=== PATIENT | male | born 1950 | race Caucasian/White ===

== ENCOUNTER 2021-06-11 19:29 | Inpatient (IN) | payer MEDICARE ==
[~2021-06-11 19:29] MED LIST: Adenosine 6 MG/2 ML VIAL ONE; Atropine Sulfate 0.4 mg/1 ml Vial ONE; Bivalirudin 250 MG VIAL ONE; Fentanyl 100 MCG/2 ML VIAL ONE; Heparin 10,000 UNITS/ 10 ML VIAL ONE; Lidocaine 1% PF 5 ML VIAL ONE; Midazolam HCl 2 mg/2 ml Vial ONE; Nitroglycerin 50 MG/250 ML BOT 250 ML ONE; Ondansetron PF 4 MG/2 ML Vial ONE; Sodium Chloride 0.9% 0 ML ONE; Verapamil 5 MG/2 ML VIAL ONE
[2021-06-11] MEDS ORDERED: Diltiazem 125 MG/25 ML ONE (19:40)
[2021-06-11 19:46] LABS: #Basophils 0.1 10x3/uL (0.0-0.2); #Eosinphils 0.1 10x3/uL (0.0-0.5); #Monocytes 0.9 10x3/uL (0.0-1.1); #Neutrophils 7.8 10x3/uL (1.5-8.4); %Basophils 0.5 % (0.0-2.0); %Eosinophils 0.9 % (0.0-6.0); %Lymphocytes 14.8 % (18.0-47.0); %Monocytes 8.9 % (0.0-10.0); %Neutrophils 74.2 % (40.0-75.0); Hemoglobin 9.8 g/dL (13.5-17.5); Mean Corpuscular HGB CONC 32.6 g/dL (32.0-36.0); Mean Corpuscular Hemoglobin 29.5 pg (27.0-33.0); Mean Corpuscular Volume 90.7 fl (81.2-95.1); Mean Platelet Volume 8.7 fl (7.4-10.4); Platelet Count 279 10x3/uL (150-450); RBC Distribution Width 13.1 % (11.5-14.5); Red Blood Cell (RBC) Count 3.32 10x6/uL (4.32-5.72); White Blood Cell (WBC) Count 10.5 10x3/uL (3.5-10.5)
[2021-06-11 20:00] LABS: ALT (SGPT) 21 U/L (8-55); AST (SGOT) 23 U/L (5-34); Albumin 3.6 g/dL (3.4-4.8); Alkaline Phosphatase 75 U/L (40-110); Anion Gap 18 mmol/L (10-20); BUN (Urea Nitrogen) 16 mg/dL (8.4-25.7); Bilirubin, Total 0.6 mg/dL (0.2-1.2); Calc. Creatinine Clearance 0 mL/min (70-130); Calcium 8.6 mg/dL (7.8-10.44); Carbon Dioxide 26 mmol/L (23-31); Chloride 93 mmol/L (98-107); Globulin 3.4 g/dL (2.4-3.5); Glucose 174 mg/dL (83-110); Potassium 3.9 mmol/L (3.5-5.1); Sodium 133 mmol/L (136-145)
[2021-06-11 20:22] LABS: CKMB 3.4 ng/mL (0-6.6)
[2021-06-11] MEDS ORDERED: Ondansetron PF 4 MG/2 ML Vial IVP PRN (20:30)
[2021-06-11] MEDS ORDERED: Zolpidem Tartrate 5 MG TAB PO PRN (20:30)
[2021-06-11] MEDS ORDERED: Calcium Carbonate 500 MG ChewTAB PO PRN (20:30)
[2021-06-11] MEDS ORDERED: Senokot S 8.6-50 MG TAB PO PRN (20:30)
[2021-06-11] MEDS ORDERED: HYDROcodone/Acetaminophen 5/325 mg Tablet PO PRN (20:30)
[2021-06-11] MEDS ORDERED: Guaifenesin DM 100-10/5 ML UDCUP PO PRN (20:30)
[2021-06-11 20:31] LABS: SARS-CoV-2 NAA Rapid Test Not Detected (NotDetected)
[2021-06-11] MEDS ORDERED: Dextrose 50% Abboject 50 ML SYRINGE SLOW IVP PRN (20:35)
[2021-06-11] MEDS ORDERED: Dextrose 5% in Water 1,000 ML IV PRN (20:35)
[2021-06-11] MEDS ORDERED: Nitroglycerin 0.4 MG TAB (25 Tab Bottle) SL PRN (20:39)
[2021-06-11] MEDS ORDERED: Diltiazem 125 MG in Sodium Chloride 0.9% 100 ML IVPB SCH (20:45)
[2021-06-11] MEDS ORDERED: predniSONE 20 MG TAB PO SCH (20:45)
[2021-06-11] MEDS ORDERED: Atorvastatin Calcium 40 MG TAB PO SCH (21:00)
[2021-06-11] MEDS ORDERED: PROPOFOL 200 MG/20 ML VIAL ONE (22:26)
[2021-06-11] MEDS ORDERED: Phenylephrine 10 MG/ML VIAL ONE (22:26)
[2021-06-11 23:51] LABS: CKMB 7.2 ng/mL (0-6.6)
[2021-06-12] MEDS: Metoprolol Tartrate 25 MG TAB PO SCH ×3 (01:02→21:36)
[2021-06-12] MEDS: Ferrous Sulfate 325 MG TAB PO SCH ×3 (01:02→21:36)
[2021-06-12] MEDS ORDERED: Furosemide 40 MG/4 ML VIAL SLOW IVP PRN (01:31)
[2021-06-12 04:26] LABS: #Monocytes 0.2 10x3/uL (0.0-1.1); #Neutrophils 6.3 10x3/uL (1.5-8.4); %Basophils 0.1 % (0.0-2.0); %Eosinophils 0.1 % (0.0-6.0); %Lymphocytes 7.8 % (18.0-47.0); %Monocytes 2.5 % (0.0-10.0); %Neutrophils 88.9 % (40.0-75.0); Hemoglobin 8.8 g/dL (13.5-17.5); Mean Corpuscular HGB CONC 32.6 g/dL (32.0-36.0); Mean Corpuscular Hemoglobin 28.9 pg (27.0-33.0); Mean Corpuscular Volume 88.8 fl (81.2-95.1); Mean Platelet Volume 8.8 fl (7.4-10.4); Platelet Count 244 10x3/uL (150-450); RBC Distribution Width 13.2 % (11.5-14.5); Red Blood Cell (RBC) Count 3.04 10x6/uL (4.32-5.72); White Blood Cell (WBC) Count 7.1 10x3/uL (3.5-10.5)
[2021-06-12 04:38] LABS: Anion Gap 14 mmol/L (10-20); BUN (Urea Nitrogen) 21 mg/dL (8.4-25.7); Calc. Creatinine Clearance 88 mL/min (70-130); Calcium 8.4 mg/dL (7.8-10.44); Carbon Dioxide 26 mmol/L (23-31); Cardiac Risk 2.5 (Less than 4.5); Chloride 97 mmol/L (98-107); Cholesterol 75 mg/dl (< 200 Desired); Glucose 223 mg/dL (83-110); HDL Cholesterol 30 mg/dL (>60 Neg Risk); LDL Cholesterol, Calculated 36 mg/dL; Potassium 4.4 mmol/L (3.5-5.1); Sodium 133 mmol/L (136-145); Triglycerides 43 mg/dL (Less than 150)
[2021-06-12] MEDS: Budesonide 0.5 MG/2 ML NEB NEB SCH ×2 (07:08→22:07)
[2021-06-12] MEDS ORDERED: predniSONE 20 MG TAB PO SCH (08:00)
[2021-06-12] MEDS ORDERED: Furosemide 20 MG/2 ML VIAL SLOW IVP SCH (09:00)
[2021-06-12] MEDS ORDERED: Aspirin 81 mg Enteric Coated Tablet PO SCH (09:00)
[2021-06-12] MEDS ORDERED: Enoxaparin Sodium 100 MG/ML SYRINGE SC SCH (09:00)
[2021-06-12] MEDS: Amiodarone 200 MG TAB PO SCH ×3 (09:54→21:35)
[2021-06-12 12:37] LABS: Hemoglobin A1c 6.1 % (4.0-6.0)
[2021-06-12] MEDS: HumaLOG 300 UNITS/3 ML VIAL SC PRN (13:15)
[2021-06-12] MEDS ORDERED: Furosemide 40 MG/4 ML VIAL SLOW IVP SCH (15:00)
[2021-06-12] MEDS ORDERED: Loratadine 10 MG TAB PO PRN (16:39)
[2021-06-12] MEDS: metFORMIN 500 MG TAB PO SCH (16:56)
[2021-06-12] MEDS: Atorvastatin Calcium 40 MG TAB PO SCH (21:35)
[2021-06-12] MEDS: Gabapentin 400 MG CAP PO SCH (21:35)
[2021-06-12] MEDS: busPIRone HCl 5 MG TAB PO SCH (21:35)
[2021-06-12] MEDS: Apixaban 5 MG TAB PO SCH (21:36)
[2021-06-13 05:44] LABS: #Neutrophils 13.8 10x3/uL (1.5-8.4); %Basophils 0.1 % (0.0-2.0); %Eosinophils 0.1 % (0.0-6.0); %Lymphocytes 6.1 % (18.0-47.0); %Monocytes 6.5 % (0.0-10.0); %Neutrophils 86.3 % (40.0-75.0); Hemoglobin 8.4 g/dL (13.5-17.5); Mean Corpuscular HGB CONC 31.9 g/dL (32.0-36.0); Mean Corpuscular Hemoglobin 28.4 pg (27.0-33.0); Mean Corpuscular Volume 88.9 fl (81.2-95.1); Mean Platelet Volume 8.9 fl (7.4-10.4); Platelet Count 278 10x3/uL (150-450); RBC Distribution Width 13.1 % (11.5-14.5); Red Blood Cell (RBC) Count 2.96 10x6/uL (4.32-5.72)
[2021-06-13 05:50] LABS: Anion Gap 12 mmol/L (10-20); BUN (Urea Nitrogen) 26 mg/dL (8.4-25.7); Calc. Creatinine Clearance 96 mL/min (70-130); Calcium 8.4 mg/dL (7.8-10.44); Carbon Dioxide 30 mmol/L (23-31); Chloride 95 mmol/L (98-107); Glucose 118 mg/dL (83-110); Potassium 4.1 mmol/L (3.5-5.1); Sodium 133 mmol/L (136-145)
[2021-06-13] MEDS: Budesonide 0.5 MG/2 ML NEB NEB SCH ×2 (07:56→21:58)
[2021-06-13] MEDS ORDERED: Furosemide 20 MG TAB PO SCH (09:00)
[2021-06-13] MEDS ORDERED: FLU VACC QS2021-22(65YR UP)/PF 240 MCG/0.7 ML SYRINGE IM ONE (09:00)
[2021-06-13] MEDS: Clopidogrel Bisulfate 75 MG TAB PO SCH (09:21)
[2021-06-13] MEDS: Apixaban 5 MG TAB PO SCH (09:21)
[2021-06-13] MEDS: Losartan 25 MG TAB PO SCH (09:21)
[2021-06-13] MEDS: Citalopram 20 MG TAB PO SCH (09:23)
[2021-06-13] MEDS: Metoprolol Tartrate 25 MG TAB PO SCH ×2 (09:24→22:19)
[2021-06-13] MEDS: metFORMIN 500 MG TAB PO SCH ×2 (09:24→16:09)
[2021-06-13] MEDS: busPIRone HCl 5 MG TAB PO SCH ×2 (09:24→21:18)
[2021-06-13] MEDS: Gabapentin 400 MG CAP PO SCH ×2 (09:25→21:18)
[2021-06-13] MEDS: Ferrous Sulfate 325 MG TAB PO SCH ×2 (09:25→21:19)
[2021-06-13] MEDS: Amiodarone 200 MG TAB PO SCH ×3 (09:25→21:19)
[2021-06-13] MEDS: Aspirin 81 mg Enteric Coated Tablet PO SCH (09:25)
[2021-06-13 11:01] LABS: CKMB 6.6 ng/mL (0-6.6)
[2021-06-13] MEDS: HumaLOG 300 UNITS/3 ML VIAL SC PRN (12:59)
[2021-06-13] MEDS ORDERED: Nicotine 14 MG PATCH TD SCH (16:30)
[2021-06-13] MEDS: Acetaminophen 325 MG TAB PO PRN (18:25)
[2021-06-13] MEDS: Atorvastatin Calcium 40 MG TAB PO SCH (21:19)
[2021-06-14 02:57] LABS: Bilirubin Neg (Negative); Blood, Urine Negative (Negative); Clarity Clear (Clear); Glucose, Urine (Dipstick) Normal (Negative); Ketone, Urine Negative (Negative); Leukocyte Negative (Negative); Nitrite Negative (Negative); Protein, Urine (Dipstick) Negative (Neg-Trace); Urobilinogen Normal mg/dL (Less than 2)
[2021-06-14 02:59] LABS: Urine Culture Reflex No No
[2021-06-14 03:05] LABS: Bacteria/HPF Rare-Few HPF (None Seen); RBC/HPF 0-3 HPF (0-3); Squamous Epithelial 0-3 HPF (0-3); WBC/HPF 0-3 HPF (0-3)
[2021-06-14 05:18] LABS: #Eosinphils 0.1 10x3/uL (0.0-0.5); #Monocytes 0.8 10x3/uL (0.0-1.1); #Neutrophils 6.4 10x3/uL (1.5-8.4); %Basophils 0.5 % (0.0-2.0); %Eosinophils 0.7 % (0.0-6.0); %Lymphocytes 13.1 % (18.0-47.0); %Monocytes 9.4 % (0.0-10.0); %Neutrophils 75.7 % (40.0-75.0); Hemoglobin 7.8 g/dL (13.5-17.5); Mean Corpuscular HGB CONC 31.6 g/dL (32.0-36.0); Mean Corpuscular Hemoglobin 28.7 pg (27.0-33.0); Mean Corpuscular Volume 90.8 fl (81.2-95.1); Mean Platelet Volume 8.8 fl (7.4-10.4); Platelet Count 249 10x3/uL (150-450); RBC Distribution Width 13.3 % (11.5-14.5); Red Blood Cell (RBC) Count 2.72 10x6/uL (4.32-5.72); White Blood Cell (WBC) Count 8.5 10x3/uL (3.5-10.5)
[2021-06-14 06:08] LABS: CKMB 4.8 ng/mL (0-6.6)
[2021-06-14] MEDS: Budesonide 0.5 MG/2 ML NEB NEB SCH ×2 (07:10→20:45)
[2021-06-14] MEDS ORDERED: Sodium Chloride 0.9% 500 ML IV SCH (08:00)
[2021-06-14] MEDS: metFORMIN 500 MG TAB PO SCH ×2 (08:36→18:38)
[2021-06-14] MEDS: Gabapentin 400 MG CAP PO SCH ×2 (08:36→22:00)
[2021-06-14] MEDS: Citalopram 20 MG TAB PO SCH (08:38)
[2021-06-14] MEDS: Amiodarone 200 MG TAB PO SCH ×3 (08:39→21:59)
[2021-06-14] MEDS: Aspirin 81 mg Enteric Coated Tablet PO SCH (08:39)
[2021-06-14] MEDS: Metoprolol Tartrate 25 MG TAB PO SCH ×2 (08:41→22:01)
[2021-06-14] MEDS: Ferrous Sulfate 325 MG TAB PO SCH ×2 (08:42→22:01)
[2021-06-14] MEDS: busPIRone HCl 5 MG TAB PO SCH ×2 (08:42→21:59)
[2021-06-14] MEDS ORDERED: Digoxin 0.5 MG/2 ML AMP SLOW IVP SCH ×2 (09:00→14:00)
[2021-06-14] MEDS: Clopidogrel Bisulfate 75 MG TAB PO SCH (13:20)
[2021-06-14] MEDS: Pantoprazole 40 MG VIAL IVP SCH ×2 (13:21→20:45)
[2021-06-14] MEDS: Nicotine 14 MG PATCH TD SCH (13:21)
[2021-06-14 19:38] LABS: #Eosinphils 0.1 10x3/uL (0.0-0.5); #Monocytes 0.9 10x3/uL (0.0-1.1); #Neutrophils 7.2 10x3/uL (1.5-8.4); %Basophils 0.3 % (0.0-2.0); %Lymphocytes 11.3 % (18.0-47.0); %Monocytes 9.7 % (0.0-10.0); %Neutrophils 77.3 % (40.0-75.0); Hemoglobin 10.4 g/dL (13.5-17.5); Mean Corpuscular HGB CONC 31.7 g/dL (32.0-36.0); Mean Corpuscular Hemoglobin 28.5 pg (27.0-33.0); Mean Corpuscular Volume 89.9 fl (81.2-95.1); Mean Platelet Volume 8.5 fl (7.4-10.4); Platelet Count 249 10x3/uL (150-450); RBC Distribution Width 13.8 % (11.5-14.5); Red Blood Cell (RBC) Count 3.65 10x6/uL (4.32-5.72); White Blood Cell (WBC) Count 9.3 10x3/uL (3.5-10.5)
[2021-06-14 20:25] LABS: CKMB 4.3 ng/mL (0-6.6)
[2021-06-14] MEDS ORDERED: Vancomycin 1.5 GRAM/300 ML BAG 1.5 GM in Premix Bag 1 BAG IVPB SCH (21:00)
[2021-06-14] MEDS: Atorvastatin Calcium 40 MG TAB PO SCH (21:59)
[2021-06-15 05:39] LABS: Anion Gap 11 mmol/L (10-20); BUN (Urea Nitrogen) 18 mg/dL (8.4-25.7); Calc. Creatinine Clearance 93 mL/min (70-130); Calcium 8.3 mg/dL (7.8-10.44); Carbon Dioxide 29 mmol/L (23-31); Chloride 96 mmol/L (98-107); Glucose 106 mg/dL (83-110); Potassium 4.2 mmol/L (3.5-5.1); Sodium 132 mmol/L (136-145)
[2021-06-15 05:48] LABS: #Eosinphils 0.1 10x3/uL (0.0-0.5); #Monocytes 0.9 10x3/uL (0.0-1.1); #Neutrophils 7.6 10x3/uL (1.5-8.4); %Basophils 0.4 % (0.0-2.0); %Lymphocytes 10.8 % (18.0-47.0); %Monocytes 8.8 % (0.0-10.0); %Neutrophils 78.4 % (40.0-75.0); Hemoglobin 10.1 g/dL (13.5-17.5); Mean Corpuscular HGB CONC 32.1 g/dL (32.0-36.0); Mean Corpuscular Hemoglobin 28.5 pg (27.0-33.0); Mean Platelet Volume 8.8 fl (7.4-10.4); Platelet Count 245 10x3/uL (150-450); Red Blood Cell (RBC) Count 3.54 10x6/uL (4.32-5.72); White Blood Cell (WBC) Count 9.7 10x3/uL (3.5-10.5)
[2021-06-15] MEDS: Budesonide 0.5 MG/2 ML NEB NEB SCH ×2 (07:42→21:05)
[2021-06-15] MEDS ORDERED: Vancomycin HCl 1 GM in Sodium Chloride 0.9% 250 ML 250 ML IVPB SCH (09:00)
[2021-06-15] MEDS: metFORMIN 500 MG TAB PO SCH ×2 (09:07→17:09)
[2021-06-15] MEDS: Aspirin 81 mg Enteric Coated Tablet PO SCH (09:07)
[2021-06-15] MEDS: Gabapentin 400 MG CAP PO SCH ×2 (09:07→21:31)
[2021-06-15] MEDS: Clopidogrel Bisulfate 75 MG TAB PO SCH (09:08)
[2021-06-15] MEDS: busPIRone HCl 5 MG TAB PO SCH ×2 (09:08→21:31)
[2021-06-15] MEDS: Amiodarone 200 MG TAB PO SCH ×3 (09:08→21:31)
[2021-06-15] MEDS: Ferrous Sulfate 325 MG TAB PO SCH (09:09)
[2021-06-15] MEDS: Citalopram 20 MG TAB PO SCH (09:09)
[2021-06-15] MEDS: Losartan 25 MG TAB PO SCH (09:09)
[2021-06-15] MEDS: Metoprolol Tartrate 25 MG TAB PO SCH ×2 (09:09→22:00)
[2021-06-15] MEDS: Vancomycin 1.5 GRAM/300 ML BAG 1.5 GM in Premix Bag 1 BAG IVPB SCH ×2 (09:10→23:00)
[2021-06-15] MEDS: Pantoprazole 40 MG VIAL IVP SCH ×2 (09:10→21:42)
[2021-06-15] MEDS: Nicotine 14 MG PATCH TD SCH (11:22)
[2021-06-15] MEDS: GoLYTELY 4,000 ml Bottle PO SCH (17:09)
[2021-06-15] MEDS: Atorvastatin Calcium 40 MG TAB PO SCH (21:30)
[2021-06-16] MEDS: GoLYTELY 4,000 ml Bottle PO SCH (05:00)
[2021-06-16] MEDS: Budesonide 0.5 MG/2 ML NEB NEB SCH ×2 (07:42→20:41)
[2021-06-16] MEDS: Amiodarone 200 MG TAB PO SCH ×3 (08:44→20:49)
[2021-06-16] MEDS: Metoprolol Tartrate 25 MG TAB PO SCH ×2 (08:44→20:51)
[2021-06-16] MEDS: Gabapentin 400 MG CAP PO SCH ×2 (08:45→20:49)
[2021-06-16] MEDS: Pantoprazole 40 MG VIAL IVP SCH ×2 (08:45→20:51)
[2021-06-16] MEDS: Losartan 25 MG TAB PO SCH (08:45)
[2021-06-16 09:12] LABS: Vancomycin, Trough 19.3 ug/mL
[2021-06-16] MEDS: busPIRone HCl 5 MG TAB PO SCH ×2 (09:16→20:50)
[2021-06-16] MEDS: Aspirin 81 mg Enteric Coated Tablet PO SCH (09:16)
[2021-06-16] MEDS: Citalopram 20 MG TAB PO SCH (09:16)
[2021-06-16] MEDS: metFORMIN 500 MG TAB PO SCH ×2 (09:16→19:38)
[2021-06-16] MEDS: Vancomycin 1.5 GRAM/300 ML BAG 1.5 GM in Premix Bag 1 BAG IVPB SCH (09:17)
[2021-06-16] MEDS: Clopidogrel Bisulfate 75 MG TAB PO SCH (09:17)
[2021-06-16 09:18] LABS: ALT (SGPT) 23 U/L (8-55); AST (SGOT) 22 U/L (5-34); Albumin 3.1 g/dL (3.4-4.8); Alkaline Phosphatase 65 U/L (40-110); Anion Gap 14 mmol/L (10-20); BUN (Urea Nitrogen) 12 mg/dL (8.4-25.7); Bilirubin, Total 1.1 mg/dL (0.2-1.2); Calc. Creatinine Clearance 100 mL/min (70-130); Carbon Dioxide 27 mmol/L (23-31); Chloride 97 mmol/L (98-107); Globulin 2.4 g/dL (2.4-3.5); Glucose 119 mg/dL (83-110); Potassium 3.8 mmol/L (3.5-5.1); Protein, Total 5.5 g/dL (5.8-8.1); Sodium 134 mmol/L (136-145)
[2021-06-16] MEDS: Nicotine 14 MG PATCH TD SCH (09:18)
[2021-06-16] MEDS ORDERED: Ketamine 50 MG/ML (10ML VIAL) ONE (15:02)
[2021-06-16] MEDS ORDERED: PROPOFOL 20 ML ONE ×3 (15:03→16:45)
[2021-06-16] MEDS ORDERED: PHENYLEPHRINE-NS 100 MCG/ML 10 ML SYRINGE ONE (15:04)
[2021-06-16] MEDS ORDERED: Lidocaine 1% PF 5 ML VIAL ONE (15:04)
[2021-06-16] MEDS: Atorvastatin Calcium 40 MG TAB PO SCH (20:48)
[2021-06-16] MEDS: cefTRIAXone\\ROCEPHIN 2 GM in Sodium Chloride 0.9% 100 ML IVPB SCH (20:49)
[2021-06-16] MEDS ORDERED: VANCOMYCIN 1.25 GM/250 ML BAG 1.25 GM in Premix Bag 1 BAG IVPB SCH (21:00)
[2021-06-16] MEDS: Ampicillin 2 GM in Sodium Chloride 0.9% 100 ML IVPB SCH (22:15)
[2021-06-16] MEDS: Acetaminophen 325 MG TAB PO PRN (22:24)
[2021-06-17] MEDS: Ampicillin 2 GM in Sodium Chloride 0.9% 100 ML IVPB SCH ×6 (01:30→21:22)
[2021-06-17] MEDS: Pantoprazole 40 MG VIAL IVP SCH ×2 (08:23→21:22)
[2021-06-17] MEDS: busPIRone HCl 5 MG TAB PO SCH ×2 (08:23→21:24)
[2021-06-17] MEDS: metFORMIN 500 MG TAB PO SCH ×2 (08:23→16:58)
[2021-06-17] MEDS: Metoprolol Tartrate 25 MG TAB PO SCH ×2 (08:23→21:23)
[2021-06-17] MEDS: Gabapentin 400 MG CAP PO SCH ×2 (08:24→21:22)
[2021-06-17] MEDS: Losartan 25 MG TAB PO SCH (08:25)
[2021-06-17] MEDS: Amiodarone 200 MG TAB PO SCH ×3 (08:25→21:27)
[2021-06-17] MEDS: Clopidogrel Bisulfate 75 MG TAB PO SCH (08:25)
[2021-06-17] MEDS: Citalopram 20 MG TAB PO SCH (08:25)
[2021-06-17] MEDS: Aspirin 81 mg Enteric Coated Tablet PO SCH (08:26)
[2021-06-17] MEDS: Budesonide 0.5 MG/2 ML NEB NEB SCH ×2 (09:20→20:36)
[2021-06-17] MEDS: Nicotine 14 MG PATCH TD SCH (09:33)
[2021-06-17] MEDS: cefTRIAXone\\ROCEPHIN 2 GM in Sodium Chloride 0.9% 100 ML IVPB SCH ×2 (09:33→22:21)
[2021-06-17] MEDS: Atorvastatin Calcium 40 MG TAB PO SCH (22:00)
[2021-06-18] MEDS: Ampicillin 2 GM in Sodium Chloride 0.9% 100 ML IVPB SCH ×7 (02:30→20:28)
[2021-06-18] MEDS: Budesonide 0.5 MG/2 ML NEB NEB SCH ×2 (07:06→20:45)
[2021-06-18] MEDS: Aspirin 81 mg Enteric Coated Tablet PO SCH (07:53)
[2021-06-18] MEDS: Gabapentin 400 MG CAP PO SCH ×2 (07:53→20:34)
[2021-06-18] MEDS: Citalopram 20 MG TAB PO SCH (07:53)
[2021-06-18] MEDS: Pantoprazole 40 MG VIAL IVP SCH ×2 (07:53→20:40)
[2021-06-18] MEDS: Metoprolol Tartrate 25 MG TAB PO SCH ×2 (07:54→20:35)
[2021-06-18] MEDS: Amiodarone 200 MG TAB PO SCH ×3 (07:54→20:33)
[2021-06-18] MEDS: metFORMIN 500 MG TAB PO SCH ×2 (07:54→15:53)
[2021-06-18] MEDS: busPIRone HCl 5 MG TAB PO SCH ×2 (07:54→20:28)
[2021-06-18] MEDS: Losartan 25 MG TAB PO SCH (07:54)
[2021-06-18] MEDS: Clopidogrel Bisulfate 75 MG TAB PO SCH (07:55)
[2021-06-18] MEDS: Nicotine 14 MG PATCH TD SCH (07:55)
[2021-06-18 08:35] LABS: Vancomycin, Trough 5.6 ug/mL
[2021-06-18] MEDS ORDERED: Ampicillin 2 GM VIAL ONE (08:36)
[2021-06-18] MEDS: cefTRIAXone\\ROCEPHIN 2 GM in Sodium Chloride 0.9% 100 ML IVPB SCH ×2 (09:13→20:28)
[2021-06-18 12:52] LABS: PTT 26.7 sec (22.0-33.0); Prothrombin Time 11.2 sec (9.5-12.1)
[2021-06-18] MEDS ORDERED: Sodium Chloride 0.9% 100 ML ONE (20:10)
[2021-06-18] MEDS: Atorvastatin Calcium 40 MG TAB PO SCH (20:33)
[2021-06-19] MEDS: Ampicillin 2 GM in Sodium Chloride 0.9% 100 ML IVPB SCH ×6 (05:23→21:25)
[2021-06-19] MEDS: Budesonide 0.5 MG/2 ML NEB NEB SCH ×2 (07:15→19:14)
[2021-06-19] MEDS: cefTRIAXone\\ROCEPHIN 2 GM in Sodium Chloride 0.9% 100 ML IVPB SCH ×2 (09:59→20:31)
[2021-06-19] MEDS: Nicotine 14 MG PATCH TD SCH (10:00)
[2021-06-19] MEDS: Gabapentin 400 MG CAP PO SCH ×2 (10:00→20:32)
[2021-06-19] MEDS: Citalopram 20 MG TAB PO SCH (10:00)
[2021-06-19] MEDS: busPIRone HCl 5 MG TAB PO SCH ×2 (10:01→20:32)
[2021-06-19] MEDS: Metoprolol Tartrate 25 MG TAB PO SCH ×2 (10:01→20:37)
[2021-06-19] MEDS: metFORMIN 500 MG TAB PO SCH ×2 (10:01→17:13)
[2021-06-19] MEDS: Losartan 25 MG TAB PO SCH (10:01)
[2021-06-19] MEDS: Aspirin 81 mg Enteric Coated Tablet PO SCH (10:01)
[2021-06-19] MEDS: Clopidogrel Bisulfate 75 MG TAB PO SCH (10:02)
[2021-06-19] MEDS: Pantoprazole 40 MG VIAL IVP SCH ×2 (10:02→20:33)
[2021-06-19] MEDS: Amiodarone 200 MG TAB PO SCH ×2 (10:02→20:33)
[2021-06-19] MEDS ORDERED: Sodium Bicarbonate 2.5 MEQ/5 ML VIAL ONE (10:32)
[2021-06-19] MEDS ORDERED: Lidocaine 1% PF 5 ML VIAL ONE (10:32)
[2021-06-19] MEDS: Acetaminophen 325 MG TAB PO PRN (14:42)
[2021-06-19] MEDS: Atorvastatin Calcium 40 MG TAB PO SCH (20:33)
[2021-06-20] MEDS: Ampicillin 2 GM in Sodium Chloride 0.9% 100 ML IVPB SCH ×6 (01:04→21:03)
[2021-06-20 04:23] LABS: #Eosinphils 0.2 10x3/uL (0.0-0.5); #Monocytes 0.8 10x3/uL (0.0-1.1); #Neutrophils 5.6 10x3/uL (1.5-8.4); %Basophils 0.5 % (0.0-2.0); %Eosinophils 2.7 % (0.0-6.0); %Lymphocytes 13.6 % (18.0-47.0); %Monocytes 10.6 % (0.0-10.0); %Neutrophils 71.8 % (40.0-75.0); Hemoglobin 10.4 g/dL (13.5-17.5); Mean Corpuscular HGB CONC 31.9 g/dL (32.0-36.0); Mean Corpuscular Hemoglobin 28.5 pg (27.0-33.0); Mean Corpuscular Volume 89.3 fl (81.2-95.1); Mean Platelet Volume 8.7 fl (7.4-10.4); Platelet Count 268 10x3/uL (150-450); RBC Distribution Width 13.6 % (11.5-14.5); Red Blood Cell (RBC) Count 3.65 10x6/uL (4.32-5.72); White Blood Cell (WBC) Count 7.8 10x3/uL (3.5-10.5)
[2021-06-20 04:56] LABS: ALT (SGPT) 13 U/L (8-55); AST (SGOT) 16 U/L (5-34); Albumin 2.9 g/dL (3.4-4.8); Alkaline Phosphatase 61 U/L (40-110); Anion Gap 12 mmol/L (10-20); BUN (Urea Nitrogen) 9 mg/dL (8.4-25.7); Bilirubin, Total 0.3 mg/dL (0.2-1.2); Calc. Creatinine Clearance 91 mL/min (70-130); Calcium 8.2 mg/dL (7.8-10.44); Carbon Dioxide 27 mmol/L (23-31); Chloride 101 mmol/L (98-107); Globulin 2.7 g/dL (2.4-3.5); Glucose 94 mg/dL (83-110); Potassium 4.1 mmol/L (3.5-5.1); Protein, Total 5.6 g/dL (5.8-8.1); Sodium 136 mmol/L (136-145)
[2021-06-20] MEDS: Amiodarone 200 MG TAB PO SCH ×2 (08:46→20:38)
[2021-06-20] MEDS: Metoprolol Tartrate 25 MG TAB PO SCH (08:46)
[2021-06-20] MEDS: Gabapentin 400 MG CAP PO SCH ×2 (08:47→20:37)
[2021-06-20] MEDS: Pantoprazole 40 MG VIAL IVP SCH (08:47)
[2021-06-20] MEDS: Citalopram 20 MG TAB PO SCH (08:47)
[2021-06-20] MEDS: Losartan 25 MG TAB PO SCH ×2 (08:48→20:38)
[2021-06-20] MEDS: Aspirin 81 mg Enteric Coated Tablet PO SCH (08:48)
[2021-06-20] MEDS: busPIRone HCl 5 MG TAB PO SCH ×2 (08:48→20:37)
[2021-06-20] MEDS: metFORMIN 500 MG TAB PO SCH ×2 (08:48→17:57)
[2021-06-20] MEDS: Nicotine 14 MG PATCH TD SCH (09:03)
[2021-06-20] MEDS: Budesonide 0.5 MG/2 ML NEB NEB SCH ×2 (09:07→19:43)
[2021-06-20] MEDS: cefTRIAXone\\ROCEPHIN 2 GM in Sodium Chloride 0.9% 100 ML IVPB SCH ×2 (11:39→20:41)
[2021-06-20] MEDS ORDERED: Sodium Chloride 0.9% 100 ML ONE (11:41)
[2021-06-20] MEDS ORDERED: HYDROcodone/Acetaminophen 5/325 mg Tablet PO PRN (12:23)
[2021-06-20] MEDS ORDERED: Furosemide 40 MG/4 ML VIAL SLOW IVP SCH (12:30)
[2021-06-20 15:38] LABS: SARS-CoV-2 PCR by NAA Not Detected (NotDetected)
[2021-06-20] MEDS: Atorvastatin Calcium 40 MG TAB PO SCH (20:38)
[2021-06-20] MEDS ORDERED: Pantoprazole 40 MG GRANULES PACKET PO SCH (21:00)
[2021-06-21] MEDS: Ampicillin 2 GM in Sodium Chloride 0.9% 100 ML IVPB SCH ×6 (00:56→21:31)
[2021-06-21] MEDS: Acetaminophen 325 MG TAB PO PRN ×2 (04:01→20:23)
[2021-06-21] MEDS: Budesonide 0.5 MG/2 ML NEB NEB SCH ×2 (07:19→18:57)
[2021-06-21] MEDS: metFORMIN 500 MG TAB PO SCH ×2 (08:50→18:16)
[2021-06-21] MEDS: Amiodarone 200 MG TAB PO SCH ×2 (08:50→20:24)
[2021-06-21] MEDS: Furosemide 40 MG TAB PO SCH (08:50)
[2021-06-21] MEDS: Amlodipine 5 MG TAB PO SCH (08:51)
[2021-06-21] MEDS: Aspirin 81 mg Enteric Coated Tablet PO SCH (08:52)
[2021-06-21] MEDS: busPIRone HCl 5 MG TAB PO SCH ×2 (08:52→20:22)
[2021-06-21] MEDS: Gabapentin 400 MG CAP PO SCH ×2 (08:53→20:19)
[2021-06-21] MEDS: Nicotine 14 MG PATCH TD SCH (08:53)
[2021-06-21] MEDS: Citalopram 20 MG TAB PO SCH (08:53)
[2021-06-21] MEDS: Losartan 25 MG TAB PO SCH ×2 (08:53→20:19)
[2021-06-21] MEDS: cefTRIAXone\\ROCEPHIN 2 GM in Sodium Chloride 0.9% 100 ML IVPB SCH ×2 (10:00→20:23)
[2021-06-21] MEDS: Atorvastatin Calcium 40 MG TAB PO SCH (20:22)
[2021-06-22] MEDS: Ampicillin 2 GM in Sodium Chloride 0.9% 100 ML IVPB SCH ×6 (00:55→21:26)
[2021-06-22] MEDS: Budesonide 0.5 MG/2 ML NEB NEB SCH ×2 (07:57→19:48)
[2021-06-22] MEDS: Amiodarone 200 MG TAB PO SCH ×2 (08:55→21:24)
[2021-06-22] MEDS: busPIRone HCl 5 MG TAB PO SCH ×2 (08:55→21:23)
[2021-06-22] MEDS: Nicotine 14 MG PATCH TD SCH (08:55)
[2021-06-22] MEDS: Aspirin 81 mg Enteric Coated Tablet PO SCH (08:55)
[2021-06-22] MEDS: Losartan 25 MG TAB PO SCH ×2 (08:55→21:24)
[2021-06-22] MEDS: metFORMIN 500 MG TAB PO SCH ×2 (08:55→16:38)
[2021-06-22] MEDS: Gabapentin 400 MG CAP PO SCH ×2 (08:55→21:23)
[2021-06-22] MEDS: Citalopram 20 MG TAB PO SCH (08:55)
[2021-06-22] MEDS: Furosemide 40 MG TAB PO SCH (08:55)
[2021-06-22] MEDS: Amlodipine 5 MG TAB PO SCH (08:56)
[2021-06-22] MEDS: cefTRIAXone\\ROCEPHIN 2 GM in Sodium Chloride 0.9% 100 ML IVPB SCH ×2 (08:56→22:14)
[2021-06-22] MEDS: Atorvastatin Calcium 40 MG TAB PO SCH (21:22)
[2021-06-23] MEDS: Ampicillin 2 GM in Sodium Chloride 0.9% 100 ML IVPB SCH ×6 (01:04→21:29)
[2021-06-23] MEDS: Budesonide 0.5 MG/2 ML NEB NEB SCH ×2 (07:23→19:37)
[2021-06-23] MEDS: Citalopram 20 MG TAB PO SCH (08:33)
[2021-06-23] MEDS: Aspirin 81 mg Enteric Coated Tablet PO SCH (08:33)
[2021-06-23] MEDS: Gabapentin 400 MG CAP PO SCH ×2 (08:33→21:30)
[2021-06-23] MEDS: busPIRone HCl 5 MG TAB PO SCH ×2 (08:34→21:31)
[2021-06-23] MEDS: Amlodipine 5 MG TAB PO SCH (08:35)
[2021-06-23] MEDS: Amiodarone 200 MG TAB PO SCH ×2 (08:35→21:31)
[2021-06-23] MEDS: Furosemide 40 MG TAB PO SCH (08:35)
[2021-06-23] MEDS: metFORMIN 500 MG TAB PO SCH ×2 (08:35→17:27)
[2021-06-23] MEDS: Losartan 25 MG TAB PO SCH ×2 (08:35→21:31)
[2021-06-23] MEDS: Nicotine 14 MG PATCH TD SCH (08:36)
[2021-06-23] MEDS: cefTRIAXone\\ROCEPHIN 2 GM in Sodium Chloride 0.9% 100 ML IVPB SCH ×2 (10:19→21:30)
[2021-06-23 11:56] LABS: #Basophils 0.1 10x3/uL (0.0-0.2); #Eosinphils 0.1 10x3/uL (0.0-0.5); #Monocytes 0.7 10x3/uL (0.0-1.1); #Neutrophils 6.5 10x3/uL (1.5-8.4); %Basophils 0.6 % (0.0-2.0); %Eosinophils 1.7 % (0.0-6.0); %Lymphocytes 11.7 % (18.0-47.0); %Monocytes 7.8 % (0.0-10.0); %Neutrophils 77.6 % (40.0-75.0); Hemoglobin 9.9 g/dL (13.5-17.5); Mean Corpuscular Volume 90.1 fl (81.2-95.1); Mean Platelet Volume 8.6 fl (7.4-10.4); Platelet Count 256 10x3/uL (150-450); RBC Distribution Width 13.5 % (11.5-14.5); Red Blood Cell (RBC) Count 3.54 10x6/uL (4.32-5.72); White Blood Cell (WBC) Count 8.4 10x3/uL (3.5-10.5)
[2021-06-23 12:27] LABS: Anion Gap 13 mmol/L (10-20); BUN (Urea Nitrogen) 9 mg/dL (8.4-25.7); Calc. Creatinine Clearance 86 mL/min (70-130); Calcium 8.5 mg/dL (7.8-10.44); Carbon Dioxide 28 mmol/L (23-31); Chloride 98 mmol/L (98-107); Glucose 121 mg/dL (83-110); Magnesium 1.8 mg/dL (1.6-2.6); Phosphorus 3.6 mg/dL (2.3-4.7); Potassium 3.8 mmol/L (3.5-5.1); Sodium 135 mmol/L (136-145)
[2021-06-23 12:54] LABS: CKMB 2.1 ng/mL (0-6.6)
[2021-06-23] MEDS ORDERED: cefTRIAXone\\ROCEPHIN 2 GM VIAL ONE (21:21)
[2021-06-23] MEDS: Atorvastatin Calcium 40 MG TAB PO SCH (21:30)
[2021-06-23] MEDS: Acetaminophen 325 MG TAB PO PRN (22:36)
[2021-06-24] MEDS: Ampicillin 2 GM in Sodium Chloride 0.9% 100 ML IVPB SCH ×4 (01:08→12:02)
[2021-06-24 04:47] LABS: Anion Gap 12 mmol/L (10-20); BUN (Urea Nitrogen) 10 mg/dL (8.4-25.7); Calc. Creatinine Clearance 93 mL/min (70-130); Calcium 8.2 mg/dL (7.8-10.44); Carbon Dioxide 29 mmol/L (23-31); Chloride 96 mmol/L (98-107); Glucose 100 mg/dL (83-110); Potassium 3.7 mmol/L (3.5-5.1); Sodium 133 mmol/L (136-145)
[2021-06-24 04:59] LABS: #Basophils 0.1 10x3/uL (0.0-0.2); #Eosinphils 0.2 10x3/uL (0.0-0.5); #Monocytes 0.7 10x3/uL (0.0-1.1); #Neutrophils 6.5 10x3/uL (1.5-8.4); %Basophils 0.6 % (0.0-2.0); %Lymphocytes 14.4 % (18.0-47.0); %Monocytes 7.5 % (0.0-10.0); %Neutrophils 74.8 % (40.0-75.0); Hemoglobin 9.7 g/dL (13.5-17.5); Mean Corpuscular HGB CONC 31.3 g/dL (32.0-36.0); Mean Corpuscular Hemoglobin 28.3 pg (27.0-33.0); Mean Corpuscular Volume 90.4 fl (81.2-95.1); Mean Platelet Volume 8.6 fl (7.4-10.4); Platelet Count 238 10x3/uL (150-450); RBC Distribution Width 13.6 % (11.5-14.5); Red Blood Cell (RBC) Count 3.43 10x6/uL (4.32-5.72); White Blood Cell (WBC) Count 8.6 10x3/uL (3.5-10.5)
[2021-06-24] MEDS: Budesonide 0.5 MG/2 ML NEB NEB SCH (05:26)
[2021-06-24 07:23] VITALS: BMI 35.8
[2021-06-24] MEDS: Nicotine 14 MG PATCH TD SCH (09:04)
[2021-06-24] MEDS: Gabapentin 400 MG CAP PO SCH (09:04)
[2021-06-24] MEDS: Furosemide 40 MG TAB PO SCH (09:13)
[2021-06-24] MEDS: metFORMIN 500 MG TAB PO SCH (09:13)
[2021-06-24] MEDS: Citalopram 20 MG TAB PO SCH (09:13)
[2021-06-24] MEDS: busPIRone HCl 5 MG TAB PO SCH (09:13)
[2021-06-24] MEDS: Amiodarone 200 MG TAB PO SCH (09:15)
[2021-06-24] MEDS: Amlodipine 5 MG TAB PO SCH (09:15)
[2021-06-24] MEDS: Losartan 25 MG TAB PO SCH (09:16)
[2021-06-24] MEDS: Aspirin 81 mg Enteric Coated Tablet PO SCH (09:16)
[2021-06-24] MEDS: cefTRIAXone\\ROCEPHIN 2 GM in Sodium Chloride 0.9% 100 ML IVPB SCH (09:19)
[2021-06-24 12:19] VITALS: BP 161/65; TEMP 96.7
== END 2021-06-24 13:00 | disposition short-term general hospital (02) | DRG 280 ==
LOC: CSHERS 19:29 → CSHIMCU 22:21 → CSHTELE 06-12 11:51
PROVIDERS: ADMIT Student in an Organized Health Care Education/Training Program; ATTEND Family Medicine
PROC: 5A09357 Assistance with Respiratory Ventilation, Less than 24 Consecutive Hours, Continuous Positive Airway Pressure (ICD-10-PCS; 2021-06-11)
PROC: 30233N1 Transfusion of Nonautologous Red Blood Cells into Peripheral Vein, Percutaneous Approach (ICD-10-PCS; 2021-06-14)
PROC: 0DBL8ZZ Excision of Transverse Colon, Via Natural or Artificial Opening Endoscopic (ICD-10-PCS; principal; 2021-06-16)
PROC: 0DBN8ZZ Excision of Sigmoid Colon, Via Natural or Artificial Opening Endoscopic (ICD-10-PCS; 2021-06-16)
PROC: 0DB98ZX Excision of Duodenum, Via Natural or Artificial Opening Endoscopic, Diagnostic (ICD-10-PCS; 2021-06-16)
PROC: 0DBK8ZX Excision of Ascending Colon, Via Natural or Artificial Opening Endoscopic, Diagnostic (ICD-10-PCS; 2021-06-16)
PROC: 0W3P8ZZ Control Bleeding in Gastrointestinal Tract, Via Natural or Artificial Opening Endoscopic (ICD-10-PCS; 2021-06-16)
PROC: 02HV33Z Insertion of Infusion Device into Superior Vena Cava, Percutaneous Approach (ICD-10-PCS; 2021-06-19)
PROC: B5181ZA Fluoroscopy of Superior Vena Cava using Low Osmolar Contrast, Guidance (ICD-10-PCS; 2021-06-19)
PROC: B548ZZA Ultrasonography of Superior Vena Cava, Guidance (ICD-10-PCS; 2021-06-19)
DX: I13.0 Hypertensive heart and chronic kidney disease with heart failure and stage 1 through stage 4 chronic kidney disease, or unspecified chronic kidney disease (principal); I21.A1 Myocardial infarction type 2; K55.21 Angiodysplasia of colon with hemorrhage; J96.01 Acute respiratory failure with hypoxia; I50.33 Acute on chronic diastolic (congestive) heart failure; D62 Acute posthemorrhagic anemia; R78.81 Bacteremia; Z20.822 Contact with and (suspected) exposure to COVID-19; I48.0 Paroxysmal atrial fibrillation; E11.65 Type 2 diabetes mellitus with hyperglycemia; E78.2 Mixed hyperlipidemia; I77.9 Disorder of arteries and arterioles, unspecified; G47.33 Obstructive sleep apnea (adult) (pediatric); N18.30 Chronic kidney disease, stage 3 unspecified; K63.5 Polyp of colon; E11.22 Type 2 diabetes mellitus with diabetic chronic kidney disease; I25.10 Atherosclerotic heart disease of native coronary artery without angina pectoris; K57.30 Diverticulosis of large intestine without perforation or abscess without bleeding; B96.89 Other specified bacterial agents as the cause of diseases classified elsewhere; E66.9 Obesity, unspecified; K64.4 Residual hemorrhoidal skin tags; D50.9 Iron deficiency anemia, unspecified; I35.0 Nonrheumatic aortic (valve) stenosis; E11.51 Type 2 diabetes mellitus with diabetic peripheral angiopathy without gangrene; Z90.49 Acquired absence of other specified parts of digestive tract; Z87.891 Personal history of nicotine dependence; Z79.82 Long term (current) use of aspirin; Z79.84 Long term (current) use of oral hypoglycemic drugs; Z87.11 Personal history of peptic ulcer disease; Z95.5 Presence of coronary angioplasty implant and graft; Z68.35 Body mass index [BMI] 35.0-35.9, adult
CPT/HCPCS: 0240U; 36415; 36416; 36430; 36569; 71045; 80048; 80053; 80061; 80202; 81001; 82274; 82553; 83036; 83735; 83880; 84100; 84439; 84443; 84484; 85025; 85610; 85652; 85730; 86140; 86850; 86900; 86901; 87040; 87077; 87149; 87186; 88305; 93005; 93010; 93306; 93312; 94640; 94660; 94760; 96365; 96366; 96376; C9113; J0153; J0290; J0461; J0583; J0696; J1160; J1644; J1650; J1815; J1940; J2250; J2370; J2405; J2704; J3010; J3370; J3490; J7030; J7050; J7620; J7626; P9016; U0003; U0005

== ENCOUNTER 2021-06-30 03:09 | Inpatient (IN) | payer MEDICARE ==
[2021-06-30] MEDS ORDERED: Senokot S 8.6-50 MG TAB PO PRN (04:01)
[2021-06-30] MEDS ORDERED: Dextrose 5% in Water 1,000 ML IV PRN (04:01)
[2021-06-30] MEDS ORDERED: Dextrose 50% Abboject 50 ML SYRINGE SLOW IVP PRN (04:01)
[2021-06-30] MEDS ORDERED: Ondansetron PF 4 MG/2 ML Vial IVP PRN (04:01)
[2021-06-30] MEDS ORDERED: Calcium Carbonate 500 MG ChewTAB PO PRN (04:01)
[2021-06-30] MEDS ORDERED: Guaifenesin DM 100-10/5 ML UDCUP PO PRN (04:01)
[2021-06-30] MEDS ORDERED: Loratadine 10 MG TAB PO PRN (04:08)
[2021-06-30 04:54] LABS: Magnesium 1.6 mg/dL (1.6-2.6)
[2021-06-30] MEDS ORDERED: Ampicillin 2 GM VIAL IVPB SCH (05:00)
[2021-06-30 05:29] LABS: CKMB 3.9 ng/mL (0-6.6)
[2021-06-30] MEDS: Ampicillin 2 GM in Sodium Chloride 0.9% 100 ML IVPB SCH ×5 (05:46→20:26)
[2021-06-30] MEDS: Furosemide 40 MG/4 ML VIAL SLOW IVP SCH ×2 (05:47→13:20)
[2021-06-30 06:50] LABS: Bilirubin Neg (Negative); Blood, Urine Negative (Negative); Clarity Clear (Clear); Glucose, Urine (Dipstick) Normal (Negative); Ketone, Urine Negative (Negative); Leukocyte Negative (Negative); Nitrite Negative (Negative); Protein, Urine (Dipstick) 15 mg/dl (Neg-Trace); Specific Gravity, Urine 1.015 (1.002-1.036); Urobilinogen Normal mg/dL (Less than 2)
[2021-06-30 07:03] LABS: Bacteria/HPF Rare-Few HPF (None Seen); Legionella Urinary Ag Negative (Negative); RBC/HPF 0-3 HPF (0-3); Squamous Epithelial 0-3 HPF (0-3); Strep pneumo Urine Ag NEGATIVE (NEGATIVE); WBC/HPF 0-3 HPF (0-3)
[2021-06-30] MEDS: Budesonide 0.5 MG/2 ML NEB NEB SCH ×2 (07:08→18:55)
[2021-06-30] MEDS: cefTRIAXone\\ROCEPHIN 2 GM in Sodium Chloride 0.9% 100 ML IVPB SCH ×2 (08:43→20:30)
[2021-06-30 08:51] LABS: #Basophils 0.1 10x3/uL (0.0-0.2); #Monocytes 1.2 10x3/uL (0.0-1.1); #Neutrophils 9.7 10x3/uL (1.5-8.4); %Basophils 0.4 % (0.0-2.0); %Eosinophils 0.2 % (0.0-6.0); %Lymphocytes 7.1 % (18.0-47.0); %Monocytes 10.1 % (0.0-10.0); %Neutrophils 81.6 % (40.0-75.0); Hemoglobin 9.2 g/dL (13.5-17.5); Mean Corpuscular HGB CONC 31.6 g/dL (32.0-36.0); Mean Corpuscular Hemoglobin 28.1 pg (27.0-33.0); Mean Platelet Volume 9.3 fl (7.4-10.4); Platelet Count 257 10x3/uL (150-450); RBC Distribution Width 14.6 % (11.5-14.5); Red Blood Cell (RBC) Count 3.27 10x6/uL (4.32-5.72); White Blood Cell (WBC) Count 11.9 10x3/uL (3.5-10.5)
[2021-06-30] MEDS ORDERED: Losartan 25 MG TAB PO SCH (09:00)
[2021-06-30] MEDS ORDERED: Enoxaparin Sodium 40 MG/0.4 ML SYRINGE SC SCH (09:00)
[2021-06-30 09:05] LABS: Anion Gap 14 mmol/L (10-20); BUN (Urea Nitrogen) 21 mg/dL (8.4-25.7); Calc. Creatinine Clearance 63 mL/min (70-130); Carbon Dioxide 31 mmol/L (23-31); Chloride 95 mmol/L (98-107); Glucose 115 mg/dL (83-110); Sodium 136 mmol/L (136-145)
[2021-06-30] MEDS: busPIRone HCl 5 MG TAB PO SCH ×2 (09:16→20:25)
[2021-06-30] MEDS: Citalopram 20 MG TAB PO SCH (09:17)
[2021-06-30] MEDS: metFORMIN 500 MG TAB PO SCH ×2 (09:18→17:25)
[2021-06-30] MEDS: Cholecalciferol 1,000 UNITS (25 MCG) TAB PO SCH (09:18)
[2021-06-30] MEDS: Ferrous Sulfate 325 MG TAB PO SCH ×2 (09:18→20:25)
[2021-06-30] MEDS: Amiodarone 200 MG TAB PO SCH ×2 (09:18→20:25)
[2021-06-30] MEDS: Aspirin 81 mg Enteric Coated Tablet PO SCH (09:19)
[2021-06-30 09:26] LABS: CKMB 3.7 ng/mL (0-6.6)
[2021-06-30] MEDS: Atorvastatin Calcium 40 MG TAB PO SCH (20:25)
[2021-07-01] MEDS: Ampicillin 2 GM in Sodium Chloride 0.9% 100 ML IVPB SCH ×6 (00:04→21:02)
[2021-07-01 06:34] LABS: Anion Gap 15 mmol/L (10-20); BUN (Urea Nitrogen) 22 mg/dL (8.4-25.7); Calc. Creatinine Clearance 70 mL/min (70-130); Calcium 8.1 mg/dL (7.8-10.44); Carbon Dioxide 30 mmol/L (23-31); Chloride 97 mmol/L (98-107); Glucose 106 mg/dL (83-110); Potassium 3.5 mmol/L (3.5-5.1); Sodium 138 mmol/L (136-145)
[2021-07-01] MEDS: Furosemide 40 MG/4 ML VIAL SLOW IVP SCH ×3 (06:43→21:04)
[2021-07-01] MEDS: Budesonide 0.5 MG/2 ML NEB NEB SCH ×2 (07:31→18:30)
[2021-07-01] MEDS ORDERED: FLU VACC QS2021-22(65YR UP)/PF 240 MCG/0.7 ML SYRINGE IM ONE (09:00)
[2021-07-01] MEDS: Aspirin 81 mg Enteric Coated Tablet PO SCH (09:02)
[2021-07-01] MEDS: metFORMIN 500 MG TAB PO SCH ×2 (09:02→17:29)
[2021-07-01] MEDS: Amiodarone 200 MG TAB PO SCH (09:02)
[2021-07-01] MEDS: Cholecalciferol 1,000 UNITS (25 MCG) TAB PO SCH (09:02)
[2021-07-01] MEDS: Ferrous Sulfate 325 MG TAB PO SCH ×2 (09:02→21:02)
[2021-07-01] MEDS: Citalopram 20 MG TAB PO SCH (09:03)
[2021-07-01] MEDS: cefTRIAXone\\ROCEPHIN 2 GM in Sodium Chloride 0.9% 100 ML IVPB SCH ×2 (09:03→21:01)
[2021-07-01] MEDS: busPIRone HCl 5 MG TAB PO SCH ×2 (09:03→21:03)
[2021-07-01] MEDS ORDERED: Lorazepam 2 MG/ML VIAL SLOW IVP SCH (18:00)
[2021-07-01] MEDS ORDERED: Lorazepam 2 MG/ML VIAL ONE (18:04)
[2021-07-01] MEDS ORDERED: Morphine 4 MG/ML VIAL SLOW IVP SCH (18:15)
[2021-07-01] MEDS ORDERED: Morphine 4 MG/ML VIAL ONE (18:17)
[2021-07-01] MEDS ORDERED: Metoprolol Tartrate 5 MG/5 ML VIAL ONE (18:23)
[2021-07-01] MEDS ORDERED: Metoprolol Tartrate 5 MG/5 ML VIAL IVP SCH (18:30)
[2021-07-01] MEDS: Amiodarone In Dextrose 200 ML IVPB SCH (18:35)
[2021-07-01 18:57] LABS: Anion Gap 21 mmol/L (10-20); BUN (Urea Nitrogen) 26 mg/dL (8.4-25.7); Calc. Creatinine Clearance 59 mL/min (70-130); Calcium 8.5 mg/dL (7.8-10.44); Carbon Dioxide 27 mmol/L (23-31); Chloride 95 mmol/L (98-107); Glucose 216 mg/dL (83-110); Magnesium 1.8 mg/dL (1.6-2.6); Potassium 4.1 mmol/L (3.5-5.1); Sodium 139 mmol/L (136-145)
[2021-07-01 19:06] LABS: Troponin I 0.133 ng/mL (< 0.028)
[2021-07-01] MEDS ORDERED: Amiodarone 150 MG in Dextrose 5% in Water 100 ML IVPB SCH (19:15)
[2021-07-01] MEDS ORDERED: Amiodarone 150 MG/3 ML VIAL ONE (19:20)
[2021-07-01] MEDS: Atorvastatin Calcium 40 MG TAB PO SCH (21:02)
[2021-07-01] MEDS ORDERED: Furosemide 40 MG/4 ML VIAL ONE (22:42)
[2021-07-01] MEDS ORDERED: Furosemide 100 MG/10 ML VIAL SLOW IVP SCH (23:00)
[2021-07-02 00:06] LABS: Actual Bicarbonate (HCO3a) 31.2 mEq/L (22-28); Base Excess (BEa) 5.8 mEq/L (-2.0 to +3.0); CO2 Tension 49.6 mmHg (35.0-45.0); Calcium, Ionized (arterial) 1.08 mmol/L (1.12-1.30); Carboxyhemoglobin (COHb) 0.3 gm% (0.0-3.0); Hemoglobin (Hb) 10.1 g/dL (14.0-18.0); O2 Tension (PaO2), arterial 54.6 mmHg (> 70.0); Potassium - ABG Lab 3.9 mmol/L (3.70-5.30); Puncture Site LRA; pH, Arterial 7.42 (7.35-7.45)
[2021-07-02] MEDS: Ampicillin 2 GM in Sodium Chloride 0.9% 100 ML IVPB SCH ×6 (00:15→23:45)
[2021-07-02] MEDS: Amiodarone In Dextrose 200 ML IVPB SCH ×2 (00:15→11:47)
[2021-07-02 04:43] LABS: #Monocytes 1.3 10x3/uL (0.0-1.1); #Neutrophils 9.3 10x3/uL (1.5-8.4); %Basophils 0.3 % (0.0-2.0); %Eosinophils 0.1 % (0.0-6.0); %Lymphocytes 8.2 % (18.0-47.0); %Monocytes 10.7 % (0.0-10.0); %Neutrophils 80.2 % (40.0-75.0); Hemoglobin 8.7 g/dL (13.5-17.5); Mean Corpuscular HGB CONC 30.9 g/dL (32.0-36.0); Mean Corpuscular Hemoglobin 27.8 pg (27.0-33.0); Mean Corpuscular Volume 90.1 fl (81.2-95.1); Mean Platelet Volume 9.6 fl (7.4-10.4); Platelet Count 257 10x3/uL (150-450); RBC Distribution Width 14.5 % (11.5-14.5); Red Blood Cell (RBC) Count 3.13 10x6/uL (4.32-5.72); White Blood Cell (WBC) Count 11.6 10x3/uL (3.5-10.5)
[2021-07-02 05:02] LABS: Anion Gap 18 mmol/L (10-20); BUN (Urea Nitrogen) 30 mg/dL (8.4-25.7); Calc. Creatinine Clearance 51 mL/min (70-130); Calcium 8.4 mg/dL (7.8-10.44); Carbon Dioxide 28 mmol/L (23-31); Chloride 95 mmol/L (98-107); Glucose 127 mg/dL (83-110); Potassium 3.7 mmol/L (3.5-5.1); Sodium 137 mmol/L (136-145)
[2021-07-02] MEDS: Furosemide 40 MG/4 ML VIAL SLOW IVP SCH ×2 (05:15→21:02)
[2021-07-02] MEDS: Budesonide 0.5 MG/2 ML NEB NEB SCH ×2 (07:18→18:58)
[2021-07-02] MEDS: Ferrous Sulfate 325 MG TAB PO SCH ×2 (08:36→21:21)
[2021-07-02] MEDS: busPIRone HCl 5 MG TAB PO SCH ×2 (08:36→21:21)
[2021-07-02] MEDS: Citalopram 20 MG TAB PO SCH (08:36)
[2021-07-02] MEDS: Cholecalciferol 1,000 UNITS (25 MCG) TAB PO SCH (08:36)
[2021-07-02] MEDS: Aspirin 81 mg Enteric Coated Tablet PO SCH (08:36)
[2021-07-02] MEDS: metFORMIN 500 MG TAB PO SCH ×2 (08:36→16:40)
[2021-07-02] MEDS: cefTRIAXone\\ROCEPHIN 2 GM in Sodium Chloride 0.9% 100 ML IVPB SCH ×2 (08:38→21:02)
[2021-07-02] MEDS ORDERED: Potassium Chloride 20 MEQ TAB PO SCH (09:30)
[2021-07-02] MEDS ORDERED: Magnesium 2 GM/50 ML 2 GM in Premix Bag 1 BAG IVPB SCH (09:30)
[2021-07-02] MEDS: Acetaminophen 325 MG TAB PO PRN ×2 (10:39→16:49)
[2021-07-02 16:49] LABS: SARS-CoV-2 PCR by NAA Not Detected (NotDetected)
[2021-07-02] MEDS: Atorvastatin Calcium 40 MG TAB PO SCH (21:02)
[2021-07-03] MEDS: Amiodarone In Dextrose 200 ML IVPB SCH ×2 (01:11→10:48)
[2021-07-03] MEDS: Ampicillin 2 GM in Sodium Chloride 0.9% 100 ML IVPB SCH ×3 (05:18→16:10)
[2021-07-03] MEDS: Furosemide 40 MG/4 ML VIAL SLOW IVP SCH (05:18)
[2021-07-03] MEDS: Budesonide 0.5 MG/2 ML NEB NEB SCH ×2 (07:14→17:32)
[2021-07-03] MEDS: cefTRIAXone\\ROCEPHIN 2 GM in Sodium Chloride 0.9% 100 ML IVPB SCH ×2 (08:36→19:46)
[2021-07-03] MEDS: metFORMIN 500 MG TAB PO SCH (08:37)
[2021-07-03] MEDS: busPIRone HCl 5 MG TAB PO SCH ×2 (08:37→19:47)
[2021-07-03] MEDS: Cholecalciferol 1,000 UNITS (25 MCG) TAB PO SCH (08:37)
[2021-07-03] MEDS: Aspirin 81 mg Enteric Coated Tablet PO SCH (08:37)
[2021-07-03] MEDS: Citalopram 20 MG TAB PO SCH (08:37)
[2021-07-03] MEDS: Ferrous Sulfate 325 MG TAB PO SCH ×2 (08:37→19:47)
[2021-07-03] MEDS ORDERED: Lidocaine 1% (PF) 30 ML VIAL ONE (13:04)
[2021-07-03] MEDS ORDERED: Heparin 10,000 UNITS/ 10 ML VIAL ONE (13:04)
[2021-07-03] MEDS ORDERED: Nitroglycerin 50 MG/250 ML BOT 250 ML ONE (13:04)
[2021-07-03] MEDS ORDERED: Adenosine 6 MG/2 ML VIAL ONE (13:04)
[2021-07-03] MEDS ORDERED: Bivalirudin 250 MG VIAL ONE (13:05)
[2021-07-03] MEDS ORDERED: Verapamil 5 MG/2 ML VIAL ONE (13:06)
[2021-07-03 14:03] LABS: Actual Bicarbonate (HCO3a) 31.3 mEq/L (22-28); Base Excess (BEa) 8.7 mEq/L (-2.0 to +3.0); CO2 Tension 35.2 mmHg (35.0-45.0); Calcium, Ionized (arterial) 1.04 mmol/L (1.12-1.30); Carboxyhemoglobin (COHb) 0.2 gm% (0.0-3.0); Hemoglobin (Hb) 9.2 g/dL (14.0-18.0); O2 Tension (PaO2), arterial 50.2 mmHg (> 70.0); Potassium - ABG Lab 3.1 mmol/L (3.70-5.30); Puncture Site LBA; pH, Arterial 7.57 (7.35-7.45)
[2021-07-03] MEDS ORDERED: Midazolam HCl 2 mg/2 ml Vial ONE (14:21)
[2021-07-03] MEDS ORDERED: Fentanyl 100 MCG/2 ML VIAL ONE (14:21)
[2021-07-03] MEDS ORDERED: Ondansetron PF 4 MG/2 ML Vial ONE (14:22)
[2021-07-03] MEDS ORDERED: Atropine Sulfate 0.4 mg/1 ml Vial ONE (14:22)
[2021-07-03] MEDS ORDERED: Furosemide 40 MG/4 ML VIAL ONE (14:33)
[2021-07-03 15:43] LABS: Hemoglobin 8.6 g/dL (13.5-17.5); Platelet Count 248 10x3/uL (150-450)
[2021-07-03] MEDS ORDERED: Furosemide 100 MG/10 ML VIAL SLOW IVP SCH (16:00)
[2021-07-03] MEDS: Atorvastatin Calcium 40 MG TAB PO SCH (19:47)
[2021-07-03] MEDS: Acetaminophen 325 MG TAB PO PRN (20:53)
[2021-07-04] MEDS: Ampicillin 2 GM in Sodium Chloride 0.9% 100 ML IVPB SCH ×5 (05:07→23:23)
[2021-07-04] MEDS: Furosemide 100 MG/10 ML VIAL SLOW IVP SCH ×2 (05:08→14:24)
[2021-07-04] MEDS ORDERED: Furosemide 100 MG/10 ML VIAL SLOW IVP SCH (06:00)
[2021-07-04] MEDS: Budesonide 0.5 MG/2 ML NEB NEB SCH ×2 (07:05→19:13)
[2021-07-04] MEDS: cefTRIAXone\\ROCEPHIN 2 GM in Sodium Chloride 0.9% 100 ML IVPB SCH ×2 (08:31→20:14)
[2021-07-04] MEDS: busPIRone HCl 5 MG TAB PO SCH ×2 (08:31→20:14)
[2021-07-04] MEDS: Aspirin 81 mg Enteric Coated Tablet PO SCH (08:31)
[2021-07-04] MEDS: Cholecalciferol 1,000 UNITS (25 MCG) TAB PO SCH (08:31)
[2021-07-04] MEDS: Citalopram 20 MG TAB PO SCH (08:32)
[2021-07-04] MEDS: Ferrous Sulfate 325 MG TAB PO SCH ×2 (08:32→20:14)
[2021-07-04 10:04] LABS: #Basophils 0.1 10x3/uL (0.0-0.2); #Eosinphils 0.1 10x3/uL (0.0-0.5); #Monocytes 0.9 10x3/uL (0.0-1.1); #Neutrophils 7.4 10x3/uL (1.5-8.4); %Basophils 0.7 % (0.0-2.0); %Eosinophils 0.8 % (0.0-6.0); %Lymphocytes 6.4 % (18.0-47.0); %Monocytes 9.4 % (0.0-10.0); %Neutrophils 82.1 % (40.0-75.0); Hemoglobin 9.1 g/dL (13.5-17.5); Mean Corpuscular Volume 87.4 fl (81.2-95.1); Mean Platelet Volume 9.3 fl (7.4-10.4); Platelet Count 309 10x3/uL (150-450); RBC Distribution Width 14.7 % (11.5-14.5); Red Blood Cell (RBC) Count 3.25 10x6/uL (4.32-5.72); White Blood Cell (WBC) Count 9.1 10x3/uL (3.5-10.5)
[2021-07-04 10:17] LABS: Anion Gap 19 mmol/L (10-20); BUN (Urea Nitrogen) 38 mg/dL (8.4-25.7); Calc. Creatinine Clearance 0 mL/min (70-130); Calcium 8.3 mg/dL (7.8-10.44); Carbon Dioxide 26 mmol/L (23-31); Chloride 95 mmol/L (98-107); Glucose 160 mg/dL (83-110); Potassium 3.4 mmol/L (3.5-5.1); Sodium 137 mmol/L (136-145)
[2021-07-04] MEDS: Heparin 5,000 UNITS/ML VIAL SC SCH ×2 (14:25→20:15)
[2021-07-04] MEDS: Amiodarone In Dextrose 200 ML IVPB SCH (14:30)
[2021-07-04] MEDS: ALPRAZolam 0.25 MG TAB PO PRN (19:31)
[2021-07-04] MEDS: Atorvastatin Calcium 40 MG TAB PO SCH (20:14)
[2021-07-05] MEDS: Amiodarone In Dextrose 200 ML IVPB SCH ×2 (02:43→14:17)
[2021-07-05] MEDS: Ampicillin 2 GM in Sodium Chloride 0.9% 100 ML IVPB SCH ×4 (04:22→23:19)
[2021-07-05] MEDS: Furosemide 100 MG/10 ML VIAL SLOW IVP SCH ×3 (05:14→19:50)
[2021-07-05 05:42] LABS: Anion Gap 17 mmol/L (10-20); BUN (Urea Nitrogen) 32 mg/dL (8.4-25.7); Calc. Creatinine Clearance 0 mL/min (70-130); Calcium 8.1 mg/dL (7.8-10.44); Carbon Dioxide 30 mmol/L (23-31); Chloride 94 mmol/L (98-107); Glucose 112 mg/dL (83-110); Sodium 138 mmol/L (136-145)
[2021-07-05 05:45] LABS: Potassium 2.9 mmol/L (3.5-5.1)
[2021-07-05] MEDS: Potassium Chloride 20 MEQ TAB PO SCH ×2 (06:18→08:06)
[2021-07-05 06:19] LABS: Magnesium 1.9 mg/dL (1.6-2.6)
[2021-07-05 06:37] LABS: #Basophils 0.1 10x3/uL (0.0-0.2); #Eosinphils 0.2 10x3/uL (0.0-0.5); #Monocytes 0.8 10x3/uL (0.0-1.1); #Neutrophils 5.4 10x3/uL (1.5-8.4); %Basophils 1.1 % (0.0-2.0); %Eosinophils 2.4 % (0.0-6.0); %Lymphocytes 9.3 % (18.0-47.0); %Neutrophils 75.4 % (40.0-75.0); Hemoglobin 8.5 g/dL (13.5-17.5); Mean Corpuscular HGB CONC 31.7 g/dL (32.0-36.0); Mean Corpuscular Hemoglobin 27.6 pg (27.0-33.0); Mean Platelet Volume 9.4 fl (7.4-10.4); Platelet Count 316 10x3/uL (150-450); RBC Distribution Width 14.9 % (11.5-14.5); Red Blood Cell (RBC) Count 3.08 10x6/uL (4.32-5.72); White Blood Cell (WBC) Count 7.2 10x3/uL (3.5-10.5)
[2021-07-05] MEDS: Budesonide 0.5 MG/2 ML NEB NEB SCH ×2 (07:30→19:05)
[2021-07-05] MEDS: Aspirin 81 mg Enteric Coated Tablet PO SCH (08:05)
[2021-07-05] MEDS: busPIRone HCl 5 MG TAB PO SCH ×2 (08:06→19:50)
[2021-07-05] MEDS: Citalopram 20 MG TAB PO SCH (08:06)
[2021-07-05] MEDS: Cholecalciferol 1,000 UNITS (25 MCG) TAB PO SCH (08:06)
[2021-07-05] MEDS: Ferrous Sulfate 325 MG TAB PO SCH ×2 (08:06→19:50)
[2021-07-05] MEDS: cefTRIAXone\\ROCEPHIN 2 GM in Sodium Chloride 0.9% 100 ML IVPB SCH ×2 (08:08→19:48)
[2021-07-05] MEDS: Heparin 5,000 UNITS/ML VIAL SC SCH ×3 (08:25→19:50)
[2021-07-05 11:28] LABS: Potassium 3.3 mmol/L (3.5-5.1)
[2021-07-05] MEDS: Acetaminophen 325 MG TAB PO PRN (18:41)
[2021-07-05 18:44] LABS: Anion Gap 14 mmol/L (10-20); BUN (Urea Nitrogen) 31 mg/dL (8.4-25.7); Calc. Creatinine Clearance 64 mL/min (70-130); Calcium 8.3 mg/dL (7.8-10.44); Carbon Dioxide 34 mmol/L (23-31); Chloride 93 mmol/L (98-107); Glucose 155 mg/dL (83-110); Potassium 3.3 mmol/L (3.5-5.1); Sodium 138 mmol/L (136-145)
[2021-07-05] MEDS: Atorvastatin Calcium 40 MG TAB PO SCH (19:49)
[2021-07-05] MEDS: ALPRAZolam 0.25 MG TAB PO PRN (23:15)
[2021-07-06] MEDS: Amiodarone In Dextrose 200 ML IVPB SCH ×2 (00:09→04:40)
[2021-07-06 03:56] LABS: #Basophils 0.1 10x3/uL (0.0-0.2); #Eosinphils 0.4 10x3/uL (0.0-0.5); #Neutrophils 6.5 10x3/uL (1.5-8.4); %Basophils 1.2 % (0.0-2.0); %Eosinophils 4.8 % (0.0-6.0); %Lymphocytes 9.4 % (18.0-47.0); %Monocytes 11.3 % (0.0-10.0); %Neutrophils 72.9 % (40.0-75.0); Mean Corpuscular HGB CONC 31.3 g/dL (32.0-36.0); Mean Corpuscular Hemoglobin 27.4 pg (27.0-33.0); Mean Corpuscular Volume 87.5 fl (81.2-95.1); Mean Platelet Volume 9.1 fl (7.4-10.4); Platelet Count 334 10x3/uL (150-450); RBC Distribution Width 14.4 % (11.5-14.5); Red Blood Cell (RBC) Count 3.29 10x6/uL (4.32-5.72); White Blood Cell (WBC) Count 8.9 10x3/uL (3.5-10.5)
[2021-07-06 04:03] LABS: Anion Gap 14 mmol/L (10-20); BUN (Urea Nitrogen) 27 mg/dL (8.4-25.7); Calc. Creatinine Clearance 70 mL/min (70-130); Calcium 8.3 mg/dL (7.8-10.44); Carbon Dioxide 34 mmol/L (23-31); Chloride 92 mmol/L (98-107); Glucose 110 mg/dL (83-110); Potassium 3.2 mmol/L (3.5-5.1); Sodium 137 mmol/L (136-145)
[2021-07-06] MEDS: Furosemide 100 MG/10 ML VIAL SLOW IVP SCH ×3 (04:41→21:47)
[2021-07-06] MEDS: Ampicillin 2 GM in Sodium Chloride 0.9% 100 ML IVPB SCH ×5 (04:45→21:57)
[2021-07-06] MEDS: Budesonide 0.5 MG/2 ML NEB NEB SCH ×2 (07:34→19:00)
[2021-07-06] MEDS: Cholecalciferol 1,000 UNITS (25 MCG) TAB PO SCH (08:16)
[2021-07-06] MEDS: Citalopram 20 MG TAB PO SCH (08:16)
[2021-07-06] MEDS: Aspirin 81 mg Enteric Coated Tablet PO SCH (08:16)
[2021-07-06] MEDS: Heparin 5,000 UNITS/ML VIAL SC SCH ×3 (08:16→21:47)
[2021-07-06] MEDS: Ferrous Sulfate 325 MG TAB PO SCH ×2 (08:16→21:47)
[2021-07-06] MEDS: busPIRone HCl 5 MG TAB PO SCH ×2 (08:16→21:47)
[2021-07-06] MEDS: cefTRIAXone\\ROCEPHIN 2 GM in Sodium Chloride 0.9% 100 ML IVPB SCH ×2 (08:17→20:47)
[2021-07-06] MEDS ORDERED: Potassium Chloride 20 MEQ TAB PO SCH (10:00)
[2021-07-06] MEDS: HumaLOG 300 UNITS/3 ML VIAL SC PRN (10:27)
[2021-07-06] MEDS: Acetaminophen 325 MG TAB PO PRN (17:46)
[2021-07-06] MEDS: Atorvastatin Calcium 40 MG TAB PO SCH (21:46)
[2021-07-06] MEDS: Amiodarone 200 MG TAB PO SCH (21:46)
[2021-07-06] MEDS: ALPRAZolam 0.25 MG TAB PO PRN (23:38)
[2021-07-07] MEDS: Ampicillin 2 GM in Sodium Chloride 0.9% 100 ML IVPB SCH ×6 (02:45→21:19)
[2021-07-07 03:37] LABS: Anion Gap 14 mmol/L (10-20); BUN (Urea Nitrogen) 24 mg/dL (8.4-25.7); Calc. Creatinine Clearance 67 mL/min (70-130); Calcium 8.2 mg/dL (7.8-10.44); Carbon Dioxide 36 mmol/L (23-31); Chloride 91 mmol/L (98-107); Glucose 109 mg/dL (83-110); Potassium 3.3 mmol/L (3.5-5.1); Sodium 138 mmol/L (136-145)
[2021-07-07 03:39] LABS: #Basophils 0.1 10x3/uL (0.0-0.2); #Eosinphils 0.6 10x3/uL (0.0-0.5); #Monocytes 1.2 10x3/uL (0.0-1.1); #Neutrophils 7.6 10x3/uL (1.5-8.4); %Basophils 0.9 % (0.0-2.0); %Eosinophils 5.4 % (0.0-6.0); %Lymphocytes 10.5 % (18.0-47.0); %Monocytes 11.3 % (0.0-10.0); %Neutrophils 71.3 % (40.0-75.0); Hemoglobin 9.4 g/dL (13.5-17.5); Mean Corpuscular HGB CONC 31.4 g/dL (32.0-36.0); Mean Corpuscular Hemoglobin 27.6 pg (27.0-33.0); Mean Corpuscular Volume 87.9 fl (81.2-95.1); Mean Platelet Volume 8.8 fl (7.4-10.4); Platelet Count 329 10x3/uL (150-450); RBC Distribution Width 14.6 % (11.5-14.5); White Blood Cell (WBC) Count 10.6 10x3/uL (3.5-10.5)
[2021-07-07] MEDS: Furosemide 100 MG/10 ML VIAL SLOW IVP SCH ×3 (05:39→21:18)
[2021-07-07] MEDS: Budesonide 0.5 MG/2 ML NEB NEB SCH ×2 (07:17→19:06)
[2021-07-07] MEDS: Heparin 5,000 UNITS/ML VIAL SC SCH ×3 (08:06→21:18)
[2021-07-07] MEDS: Aspirin 81 mg Enteric Coated Tablet PO SCH (08:07)
[2021-07-07] MEDS: Ferrous Sulfate 325 MG TAB PO SCH ×2 (08:07→21:18)
[2021-07-07] MEDS: Citalopram 20 MG TAB PO SCH (08:07)
[2021-07-07] MEDS: busPIRone HCl 5 MG TAB PO SCH ×2 (08:07→21:17)
[2021-07-07] MEDS: Cholecalciferol 1,000 UNITS (25 MCG) TAB PO SCH (08:08)
[2021-07-07] MEDS: cefTRIAXone\\ROCEPHIN 2 GM in Sodium Chloride 0.9% 100 ML IVPB SCH ×2 (08:08→20:41)
[2021-07-07] MEDS: Amiodarone 200 MG TAB PO SCH ×2 (08:08→21:18)
[2021-07-07] MEDS ORDERED: Electrolyte Replacement Protocol FS PRN (08:30)
[2021-07-07] MEDS ORDERED: Potassium Chloride 20 MEQ TAB PO SCH (09:00)
[2021-07-07] MEDS: Potassium Bicarbonate/Cit Ac 20 MEQ TAB PO SCH ×2 (10:35→13:18)
[2021-07-07] MEDS: ALPRAZolam 0.25 MG TAB PO PRN (10:35)
[2021-07-07] MEDS ORDERED: Magnesium 2 GM/50 ML 2 GM in Premix Bag 1 BAG IVPB SCH (12:00)
[2021-07-07] MEDS: HumaLOG 300 UNITS/3 ML VIAL SC PRN (15:58)
[2021-07-07] MEDS: Atorvastatin Calcium 40 MG TAB PO SCH (21:17)
[2021-07-08] MEDS: HYDROcodone/Acetaminophen 5/325 mg Tablet PO PRN ×3 (00:18→22:54)
[2021-07-08] MEDS: Ampicillin 2 GM in Sodium Chloride 0.9% 100 ML IVPB SCH ×6 (02:02→22:37)
[2021-07-08 03:49] LABS: #Basophils 0.1 10x3/uL (0.0-0.2); #Eosinphils 0.4 10x3/uL (0.0-0.5); #Monocytes 1.3 10x3/uL (0.0-1.1); #Neutrophils 9.1 10x3/uL (1.5-8.4); %Basophils 0.7 % (0.0-2.0); %Eosinophils 3.3 % (0.0-6.0); %Lymphocytes 8.5 % (18.0-47.0); %Monocytes 10.5 % (0.0-10.0); %Neutrophils 76.4 % (40.0-75.0); Hemoglobin 8.7 g/dL (13.5-17.5); Mean Corpuscular HGB CONC 31.4 g/dL (32.0-36.0); Mean Corpuscular Hemoglobin 27.6 pg (27.0-33.0); Mean Corpuscular Volume 87.9 fl (81.2-95.1); Mean Platelet Volume 8.9 fl (7.4-10.4); Platelet Count 347 10x3/uL (150-450); RBC Distribution Width 14.5 % (11.5-14.5); Red Blood Cell (RBC) Count 3.15 10x6/uL (4.32-5.72); White Blood Cell (WBC) Count 11.9 10x3/uL (3.5-10.5)
[2021-07-08 04:06] LABS: Anion Gap 15 mmol/L (10-20); BUN (Urea Nitrogen) 21 mg/dL (8.4-25.7); Calc. Creatinine Clearance 72 mL/min (70-130); Calcium 8.3 mg/dL (7.8-10.44); Carbon Dioxide 36 mmol/L (23-31); Chloride 90 mmol/L (98-107); Glucose 103 mg/dL (83-110); Potassium 3.7 mmol/L (3.5-5.1); Sodium 137 mmol/L (136-145)
[2021-07-08] MEDS: Furosemide 100 MG/10 ML VIAL SLOW IVP SCH ×2 (05:16→17:47)
[2021-07-08] MEDS: Budesonide 0.5 MG/2 ML NEB NEB SCH ×2 (07:01→19:07)
[2021-07-08] MEDS: busPIRone HCl 5 MG TAB PO SCH ×2 (08:17→20:39)
[2021-07-08] MEDS: Heparin 5,000 UNITS/ML VIAL SC SCH (08:17)
[2021-07-08] MEDS: Aspirin 81 mg Enteric Coated Tablet PO SCH (08:17)
[2021-07-08] MEDS: cefTRIAXone\\ROCEPHIN 2 GM in Sodium Chloride 0.9% 100 ML IVPB SCH ×2 (08:17→20:38)
[2021-07-08] MEDS: Ferrous Sulfate 325 MG TAB PO SCH (08:17)
[2021-07-08] MEDS: Citalopram 20 MG TAB PO SCH (08:18)
[2021-07-08] MEDS: Amiodarone 200 MG TAB PO SCH ×2 (08:18→20:39)
[2021-07-08] MEDS: Cholecalciferol 1,000 UNITS (25 MCG) TAB PO SCH (08:18)
[2021-07-08] MEDS ORDERED: Potassium Chloride 20 MEQ TAB PO SCH (08:30)
[2021-07-08] MEDS: Enoxaparin Sodium 40 MG/0.4 ML SYRINGE SC SCH (08:37)
[2021-07-08 09:23] LABS: Magnesium 1.8 mg/dL (1.6-2.6)
[2021-07-08] MEDS ORDERED: Magnesium 2 GM/50 ML 2 GM in Premix Bag 1 BAG IVPB SCH (11:30)
[2021-07-08] MEDS ORDERED: Furosemide 100 MG/10 ML VIAL SLOW IVP SCH (12:00)
[2021-07-08] MEDS: Atorvastatin Calcium 40 MG TAB PO SCH (20:39)
[2021-07-09] MEDS: Ampicillin 2 GM in Sodium Chloride 0.9% 100 ML IVPB SCH ×6 (02:31→22:44)
[2021-07-09 05:22] LABS: #Basophils 0.1 10x3/uL (0.0-0.2); #Eosinphils 0.5 10x3/uL (0.0-0.5); %Basophils 0.7 % (0.0-2.0); %Eosinophils 4.9 % (0.0-6.0); %Lymphocytes 11.5 % (18.0-47.0); %Monocytes 10.1 % (0.0-10.0); %Neutrophils 72.2 % (40.0-75.0); Hemoglobin 9.3 g/dL (13.5-17.5); Mean Corpuscular HGB CONC 31.7 g/dL (32.0-36.0); Mean Corpuscular Hemoglobin 27.8 pg (27.0-33.0); Mean Corpuscular Volume 87.7 fl (81.2-95.1); Mean Platelet Volume 8.9 fl (7.4-10.4); Platelet Count 371 10x3/uL (150-450); RBC Distribution Width 14.8 % (11.5-14.5); Red Blood Cell (RBC) Count 3.34 10x6/uL (4.32-5.72); White Blood Cell (WBC) Count 9.7 10x3/uL (3.5-10.5)
[2021-07-09 05:26] LABS: Anion Gap 15 mmol/L (10-20); BUN (Urea Nitrogen) 20 mg/dL (8.4-25.7); Calc. Creatinine Clearance 72 mL/min (70-130); Calcium 8.5 mg/dL (7.8-10.44); Carbon Dioxide 34 mmol/L (23-31); Chloride 93 mmol/L (98-107); Glucose 96 mg/dL (83-110); Magnesium 2.1 mg/dL (1.6-2.6); Potassium 3.9 mmol/L (3.5-5.1); Sodium 138 mmol/L (136-145)
[2021-07-09] MEDS: Budesonide 0.5 MG/2 ML NEB NEB SCH ×2 (06:30→19:15)
[2021-07-09] MEDS: Furosemide 100 MG/10 ML VIAL SLOW IVP SCH ×2 (06:46→17:41)
[2021-07-09] MEDS: cefTRIAXone\\ROCEPHIN 2 GM in Sodium Chloride 0.9% 100 ML IVPB SCH ×2 (08:10→20:19)
[2021-07-09] MEDS: Ferrous Gluconate 324 MG TAB PO SCH (08:11)
[2021-07-09] MEDS: Enoxaparin Sodium 40 MG/0.4 ML SYRINGE SC SCH (08:11)
[2021-07-09] MEDS: Aspirin 81 mg Enteric Coated Tablet PO SCH (08:11)
[2021-07-09] MEDS: busPIRone HCl 5 MG TAB PO SCH ×2 (08:11→20:25)
[2021-07-09] MEDS: Citalopram 20 MG TAB PO SCH (08:11)
[2021-07-09] MEDS: Cholecalciferol 1,000 UNITS (25 MCG) TAB PO SCH (08:11)
[2021-07-09] MEDS: Amiodarone 200 MG TAB PO SCH ×2 (08:12→20:25)
[2021-07-09] MEDS: Furosemide 40 MG/4 ML VIAL SLOW IVP SCH (12:10)
[2021-07-09] MEDS: HYDROcodone/Acetaminophen 5/325 mg Tablet PO PRN ×2 (13:13→21:16)
[2021-07-09] MEDS: Atorvastatin Calcium 40 MG TAB PO SCH (20:25)
[2021-07-10] MEDS: Ampicillin 2 GM in Sodium Chloride 0.9% 100 ML IVPB SCH ×6 (02:31→21:15)
[2021-07-10 05:04] LABS: #Basophils 0.1 10x3/uL (0.0-0.2); #Eosinphils 0.4 10x3/uL (0.0-0.5); #Neutrophils 6.4 10x3/uL (1.5-8.4); %Basophils 0.8 % (0.0-2.0); %Eosinophils 4.5 % (0.0-6.0); %Lymphocytes 11.4 % (18.0-47.0); %Monocytes 10.9 % (0.0-10.0); %Neutrophils 71.5 % (40.0-75.0); Hemoglobin 8.9 g/dL (13.5-17.5); Mean Corpuscular HGB CONC 31.7 g/dL (32.0-36.0); Mean Corpuscular Hemoglobin 27.8 pg (27.0-33.0); Mean Corpuscular Volume 87.8 fl (81.2-95.1); Mean Platelet Volume 8.9 fl (7.4-10.4); Platelet Count 354 10x3/uL (150-450); RBC Distribution Width 14.9 % (11.5-14.5)
[2021-07-10 05:37] LABS: BUN (Urea Nitrogen) 20 mg/dL (8.4-25.7); Calc. Creatinine Clearance 66 mL/min (70-130); Calcium 8.5 mg/dL (7.8-10.44); Glucose 113 mg/dL (83-110)
[2021-07-10 06:10] LABS: Anion Gap 14 mmol/L (10-20); Carbon Dioxide 37 mmol/L (23-31); Chloride 92 mmol/L (98-107); Potassium 4.2 mmol/L (3.5-5.1); Sodium 139 mmol/L (136-145)
[2021-07-10] MEDS: Furosemide 100 MG/10 ML VIAL SLOW IVP SCH (06:30)
[2021-07-10] MEDS: cefTRIAXone\\ROCEPHIN 2 GM in Sodium Chloride 0.9% 100 ML IVPB SCH (07:54)
[2021-07-10] MEDS: Enoxaparin Sodium 40 MG/0.4 ML SYRINGE SC SCH (08:01)
[2021-07-10] MEDS: Citalopram 20 MG TAB PO SCH (08:01)
[2021-07-10] MEDS: Aspirin 81 mg Enteric Coated Tablet PO SCH (08:02)
[2021-07-10] MEDS: busPIRone HCl 5 MG TAB PO SCH ×2 (08:02→20:03)
[2021-07-10] MEDS: Cholecalciferol 1,000 UNITS (25 MCG) TAB PO SCH (08:02)
[2021-07-10] MEDS: Amiodarone 200 MG TAB PO SCH ×2 (08:03→20:04)
[2021-07-10] MEDS: Ferrous Gluconate 324 MG TAB PO SCH (08:05)
[2021-07-10] MEDS: Budesonide 0.5 MG/2 ML NEB NEB SCH ×2 (08:45→18:51)
[2021-07-10] MEDS: Polyethylene Glycol 3350 17 GM Packet PO PRN (11:06)
[2021-07-10] MEDS: HYDROcodone/Acetaminophen 5/325 mg Tablet PO PRN ×2 (14:21→20:03)
[2021-07-10 18:24] LABS: SARS-CoV-2 PCR by NAA Not Detected (NotDetected)
[2021-07-10] MEDS ORDERED: Budesonide 0.5 MG/2 ML NEB ONE (18:50)
[2021-07-10] MEDS: Furosemide 40 MG/4 ML VIAL SLOW IVP SCH (19:38)
[2021-07-10] MEDS: Atorvastatin Calcium 40 MG TAB PO SCH (20:03)
[2021-07-11] MEDS: Ampicillin 2 GM in Sodium Chloride 0.9% 100 ML IVPB SCH ×6 (01:32→21:31)
[2021-07-11 05:07] LABS: #Basophils 0.1 10x3/uL (0.0-0.2); #Eosinphils 0.3 10x3/uL (0.0-0.5); #Neutrophils 6.3 10x3/uL (1.5-8.4); %Basophils 0.8 % (0.0-2.0); %Eosinophils 3.8 % (0.0-6.0); %Lymphocytes 12.7 % (18.0-47.0); %Monocytes 11.2 % (0.0-10.0); %Neutrophils 70.5 % (40.0-75.0); Mean Corpuscular HGB CONC 31.6 g/dL (32.0-36.0); Mean Corpuscular Hemoglobin 27.6 pg (27.0-33.0); Mean Corpuscular Volume 87.4 fl (81.2-95.1); Mean Platelet Volume 8.9 fl (7.4-10.4); Platelet Count 355 10x3/uL (150-450); Red Blood Cell (RBC) Count 3.26 10x6/uL (4.32-5.72)
[2021-07-11 05:18] LABS: Anion Gap 14 mmol/L (10-20); BUN (Urea Nitrogen) 18 mg/dL (8.4-25.7); Calc. Creatinine Clearance 74 mL/min (70-130); Calcium 8.5 mg/dL (7.8-10.44); Carbon Dioxide 34 mmol/L (23-31); Chloride 94 mmol/L (98-107); Glucose 109 mg/dL (83-110); Potassium 3.4 mmol/L (3.5-5.1); Sodium 139 mmol/L (136-145)
[2021-07-11] MEDS ORDERED: Potassium Chloride 20 MEQ in Premix Bag 1 BAG IVPB SCH (07:00)
[2021-07-11] MEDS ORDERED: Potassium Chloride 20 MEQ TAB PO SCH (07:00)
[2021-07-11] MEDS: Budesonide 0.5 MG/2 ML NEB NEB SCH ×2 (07:53→18:44)
[2021-07-11] MEDS: Citalopram 20 MG TAB PO SCH (09:11)
[2021-07-11] MEDS: Aspirin 81 mg Enteric Coated Tablet PO SCH (09:11)
[2021-07-11] MEDS: Cholecalciferol 1,000 UNITS (25 MCG) TAB PO SCH (09:12)
[2021-07-11] MEDS: Furosemide 40 MG TAB PO SCH ×2 (09:12→14:51)
[2021-07-11] MEDS: Ferrous Gluconate 324 MG TAB PO SCH (09:12)
[2021-07-11] MEDS: Amiodarone 200 MG TAB PO SCH ×2 (09:13→20:40)
[2021-07-11] MEDS: busPIRone HCl 5 MG TAB PO SCH ×2 (09:13→20:37)
[2021-07-11] MEDS: Enoxaparin Sodium 40 MG/0.4 ML SYRINGE SC SCH (09:14)
[2021-07-11] MEDS ORDERED: Furosemide 100 MG/10 ML VIAL SLOW IVP SCH (17:00)
[2021-07-11] MEDS: Acetaminophen 325 MG TAB PO PRN (20:37)
[2021-07-11] MEDS: Atorvastatin Calcium 40 MG TAB PO SCH (20:37)
[2021-07-12] MEDS: Ampicillin 2 GM in Sodium Chloride 0.9% 100 ML IVPB SCH ×6 (01:25→21:54)
[2021-07-12] MEDS: Budesonide 0.5 MG/2 ML NEB NEB SCH ×2 (05:06→18:41)
[2021-07-12 05:20] LABS: #Basophils 0.1 10x3/uL (0.0-0.2); #Eosinphils 0.3 10x3/uL (0.0-0.5); #Monocytes 0.9 10x3/uL (0.0-1.1); #Neutrophils 7.3 10x3/uL (1.5-8.4); %Basophils 0.9 % (0.0-2.0); %Eosinophils 2.7 % (0.0-6.0); %Lymphocytes 10.9 % (18.0-47.0); %Monocytes 9.4 % (0.0-10.0); %Neutrophils 75.3 % (40.0-75.0); Hemoglobin 8.9 g/dL (13.5-17.5); Mean Corpuscular HGB CONC 31.4 g/dL (32.0-36.0); Mean Corpuscular Hemoglobin 27.8 pg (27.0-33.0); Mean Corpuscular Volume 88.4 fl (81.2-95.1); Mean Platelet Volume 8.9 fl (7.4-10.4); Platelet Count 341 10x3/uL (150-450); RBC Distribution Width 15.4 % (11.5-14.5); White Blood Cell (WBC) Count 9.7 10x3/uL (3.5-10.5)
[2021-07-12 05:37] LABS: Anion Gap 15 mmol/L (10-20); BUN (Urea Nitrogen) 17 mg/dL (8.4-25.7); Calc. Creatinine Clearance 69 mL/min (70-130); Calcium 8.5 mg/dL (7.8-10.44); Carbon Dioxide 31 mmol/L (23-31); Chloride 95 mmol/L (98-107); Glucose 111 mg/dL (83-110); Magnesium 1.9 mg/dL (1.6-2.6); Phosphorus 3.8 mg/dL (2.3-4.7); Potassium 3.4 mmol/L (3.5-5.1); Sodium 138 mmol/L (136-145)
[2021-07-12] MEDS ORDERED: Magnesium 2 GM/50 ML 2 GM in Premix Bag 1 BAG IVPB SCH (05:45)
[2021-07-12] MEDS ORDERED: Potassium Chloride 20 MEQ TAB PO SCH (05:45)
[2021-07-12] MEDS: Potassium Chloride 20 MEQ TAB PO SCH ×2 (08:56→15:52)
[2021-07-12] MEDS: Ferrous Gluconate 324 MG TAB PO SCH (09:31)
[2021-07-12] MEDS: Amiodarone 200 MG TAB PO SCH ×2 (09:32→21:53)
[2021-07-12] MEDS: busPIRone HCl 5 MG TAB PO SCH ×2 (09:32→21:53)
[2021-07-12] MEDS: Cholecalciferol 1,000 UNITS (25 MCG) TAB PO SCH (09:32)
[2021-07-12] MEDS: Aspirin 81 mg Enteric Coated Tablet PO SCH (09:32)
[2021-07-12] MEDS: Furosemide 40 MG TAB PO SCH ×2 (09:33→14:42)
[2021-07-12] MEDS: Citalopram 20 MG TAB PO SCH (09:33)
[2021-07-12] MEDS: Enoxaparin Sodium 40 MG/0.4 ML SYRINGE SC SCH (09:34)
[2021-07-12] MEDS: cefTRIAXone\\ROCEPHIN 2 GM in Sodium Chloride 0.9% 100 ML IVPB SCH ×2 (11:19→22:45)
[2021-07-12] MEDS: Acetaminophen 325 MG TAB PO PRN (12:14)
[2021-07-12] MEDS ORDERED: hydrOXYzine 25 MG TAB PO PRN (14:54)
[2021-07-12] MEDS: ALPRAZolam 0.25 MG TAB PO PRN ×2 (15:52→23:12)
[2021-07-12] MEDS: Atorvastatin Calcium 40 MG TAB PO SCH (21:53)
[2021-07-12] MEDS: HumaLOG 300 UNITS/3 ML VIAL SC PRN (22:04)
[2021-07-13] MEDS: Ampicillin 2 GM in Sodium Chloride 0.9% 100 ML IVPB SCH ×6 (02:03→22:17)
[2021-07-13 05:29] LABS: #Basophils 0.1 10x3/uL (0.0-0.2); #Eosinphils 0.2 10x3/uL (0.0-0.5); %Basophils 0.8 % (0.0-2.0); %Eosinophils 2.5 % (0.0-6.0); %Monocytes 10.5 % (0.0-10.0); %Neutrophils 71.4 % (40.0-75.0); Hemoglobin 8.9 g/dL (13.5-17.5); Mean Corpuscular HGB CONC 31.3 g/dL (32.0-36.0); Mean Corpuscular Volume 89.3 fl (81.2-95.1); Mean Platelet Volume 9.1 fl (7.4-10.4); Platelet Count 320 10x3/uL (150-450); RBC Distribution Width 15.6 % (11.5-14.5); Red Blood Cell (RBC) Count 3.18 10x6/uL (4.32-5.72); White Blood Cell (WBC) Count 9.7 10x3/uL (3.5-10.5)
[2021-07-13 05:33] LABS: Anion Gap 14 mmol/L (10-20); BUN (Urea Nitrogen) 15 mg/dL (8.4-25.7); Calc. Creatinine Clearance 67 mL/min (70-130); Calcium 8.3 mg/dL (7.8-10.44); Carbon Dioxide 33 mmol/L (23-31); Chloride 96 mmol/L (98-107); Glucose 98 mg/dL (83-110); Magnesium 2.1 mg/dL (1.6-2.6); Phosphorus 3.5 mg/dL (2.3-4.7); Potassium 3.6 mmol/L (3.5-5.1); Sodium 139 mmol/L (136-145)
[2021-07-13] MEDS ORDERED: Potassium Chloride 20 MEQ TAB PO SCH (06:00)
[2021-07-13] MEDS: Budesonide 0.5 MG/2 ML NEB NEB SCH ×2 (08:05→18:47)
[2021-07-13] MEDS: Aspirin 81 mg Enteric Coated Tablet PO SCH (08:33)
[2021-07-13] MEDS: Amiodarone 200 MG TAB PO SCH ×2 (08:33→21:02)
[2021-07-13] MEDS: Ferrous Gluconate 324 MG TAB PO SCH (08:33)
[2021-07-13] MEDS: Citalopram 20 MG TAB PO SCH (08:34)
[2021-07-13] MEDS: Enoxaparin Sodium 40 MG/0.4 ML SYRINGE SC SCH (08:34)
[2021-07-13] MEDS: Cholecalciferol 1,000 UNITS (25 MCG) TAB PO SCH (08:34)
[2021-07-13] MEDS: busPIRone HCl 5 MG TAB PO SCH ×2 (08:34→21:03)
[2021-07-13] MEDS: Furosemide 40 MG TAB PO SCH ×2 (08:34→15:19)
[2021-07-13] MEDS: HYDROcodone/Acetaminophen 5/325 mg Tablet PO PRN ×2 (08:48→20:59)
[2021-07-13] MEDS: cefTRIAXone\\ROCEPHIN 2 GM in Sodium Chloride 0.9% 100 ML IVPB SCH ×2 (11:38→21:02)
[2021-07-13] MEDS: Atorvastatin Calcium 40 MG TAB PO SCH (21:01)
[2021-07-13] MEDS: Polyethylene Glycol 3350 17 GM Packet PO PRN (22:32)
[2021-07-14] MEDS: Ampicillin 2 GM in Sodium Chloride 0.9% 100 ML IVPB SCH ×7 (01:32→21:30)
[2021-07-14 05:14] LABS: #Basophils 0.1 10x3/uL (0.0-0.2); #Eosinphils 0.3 10x3/uL (0.0-0.5); #Neutrophils 5.6 10x3/uL (1.5-8.4); %Basophils 0.8 % (0.0-2.0); %Eosinophils 3.3 % (0.0-6.0); %Lymphocytes 15.6 % (18.0-47.0); %Neutrophils 67.5 % (40.0-75.0); Mean Corpuscular Volume 90.1 fl (81.2-95.1); Platelet Count 303 10x3/uL (150-450); RBC Distribution Width 15.8 % (11.5-14.5); Red Blood Cell (RBC) Count 3.22 10x6/uL (4.32-5.72); White Blood Cell (WBC) Count 8.3 10x3/uL (3.5-10.5)
[2021-07-14 05:30] LABS: Anion Gap 15 mmol/L (10-20); BUN (Urea Nitrogen) 23 mg/dL (8.4-25.7); Calc. Creatinine Clearance 58 mL/min (70-130); Calcium 8.5 mg/dL (7.8-10.44); Carbon Dioxide 32 mmol/L (23-31); Chloride 97 mmol/L (98-107); Glucose 99 mg/dL (83-110); Phosphorus 3.7 mg/dL (2.3-4.7); Potassium 4.2 mmol/L (3.5-5.1); Sodium 140 mmol/L (136-145)
[2021-07-14] MEDS ORDERED: Magnesium 2 GM/50 ML 2 GM in Premix Bag 1 BAG IVPB SCH (06:00)
[2021-07-14] MEDS: Budesonide 0.5 MG/2 ML NEB NEB SCH ×2 (07:05→18:45)
[2021-07-14] MEDS: Citalopram 20 MG TAB PO SCH (08:44)
[2021-07-14] MEDS: Furosemide 40 MG TAB PO SCH ×2 (08:44→13:40)
[2021-07-14] MEDS ORDERED: Communication Order-Pharmacy FS SCH (08:45)
[2021-07-14] MEDS ORDERED: Clopidogrel Bisulfate 300 MG TAB PO SCH (08:45)
[2021-07-14] MEDS: Ferrous Gluconate 324 MG TAB PO SCH (08:46)
[2021-07-14] MEDS: busPIRone HCl 5 MG TAB PO SCH ×2 (08:46→21:19)
[2021-07-14] MEDS: Cholecalciferol 1,000 UNITS (25 MCG) TAB PO SCH (08:47)
[2021-07-14] MEDS: Amiodarone 200 MG TAB PO SCH ×2 (08:47→21:20)
[2021-07-14] MEDS: Enoxaparin Sodium 40 MG/0.4 ML SYRINGE SC SCH (08:48)
[2021-07-14] MEDS: cefTRIAXone\\ROCEPHIN 2 GM in Sodium Chloride 0.9% 100 ML IVPB SCH ×2 (08:48→21:50)
[2021-07-14] MEDS: Aspirin 81 mg Enteric Coated Tablet PO SCH (08:48)
[2021-07-14] MEDS ORDERED: Amiodarone 200 MG TAB PO SCH (09:00)
[2021-07-14] MEDS: ALPRAZolam 0.25 MG TAB PO PRN ×2 (09:01→22:13)
[2021-07-14 10:51] VITALS: BMI 34.4
[2021-07-14] MEDS: Acetaminophen 325 MG TAB PO PRN (17:14)
[2021-07-14] MEDS: Atorvastatin Calcium 40 MG TAB PO SCH (21:19)
[2021-07-15] MEDS: Ampicillin 2 GM in Sodium Chloride 0.9% 100 ML IVPB SCH ×6 (02:00→21:52)
[2021-07-15 05:40] LABS: #Basophils 0.1 10x3/uL (0.0-0.2); #Eosinphils 0.4 10x3/uL (0.0-0.5); #Monocytes 1.2 10x3/uL (0.0-1.1); #Neutrophils 6.4 10x3/uL (1.5-8.4); %Basophils 0.7 % (0.0-2.0); %Eosinophils 3.9 % (0.0-6.0); %Lymphocytes 12.8 % (18.0-47.0); %Neutrophils 68.4 % (40.0-75.0); Hemoglobin 8.8 g/dL (13.5-17.5); Mean Corpuscular HGB CONC 31.4 g/dL (32.0-36.0); Mean Corpuscular Volume 89.2 fl (81.2-95.1); Mean Platelet Volume 9.2 fl (7.4-10.4); Platelet Count 287 10x3/uL (150-450); RBC Distribution Width 16.3 % (11.5-14.5); Red Blood Cell (RBC) Count 3.14 10x6/uL (4.32-5.72); White Blood Cell (WBC) Count 9.4 10x3/uL (3.5-10.5)
[2021-07-15 05:49] LABS: Anion Gap 15 mmol/L (10-20); BUN (Urea Nitrogen) 19 mg/dL (8.4-25.7); Calc. Creatinine Clearance 61 mL/min (70-130); Calcium 8.4 mg/dL (7.8-10.44); Carbon Dioxide 33 mmol/L (23-31); Chloride 96 mmol/L (98-107); Glucose 105 mg/dL (83-110); Magnesium 2.2 mg/dL (1.6-2.6); Phosphorus 3.8 mg/dL (2.3-4.7); Potassium 3.7 mmol/L (3.5-5.1); Sodium 140 mmol/L (136-145)
[2021-07-15] MEDS: busPIRone HCl 5 MG TAB PO SCH ×3 (06:07→21:59)
[2021-07-15] MEDS: Aspirin 81 mg Enteric Coated Tablet PO SCH (06:09)
[2021-07-15] MEDS: Cholecalciferol 1,000 UNITS (25 MCG) TAB PO SCH (06:09)
[2021-07-15] MEDS: Ferrous Gluconate 324 MG TAB PO SCH (06:10)
[2021-07-15] MEDS: Amiodarone 200 MG TAB PO SCH ×2 (06:10→21:52)
[2021-07-15] MEDS: Citalopram 20 MG TAB PO SCH (06:18)
[2021-07-15] MEDS ORDERED: Potassium Chloride 40 MEQ in Premix Bag 1 BAG IVPB SCH (06:30)
[2021-07-15] MEDS ORDERED: Potassium Chloride 20 MEQ/100 ML PREMIX BAG ONE (06:37)
[2021-07-15] MEDS ORDERED: Clopidogrel Bisulfate 75 MG TAB PO SCH ×2 (06:45→09:00)
[2021-07-15] MEDS ORDERED: Lidocaine 1% PF 5 ML VIAL ONE (06:46)
[2021-07-15] MEDS ORDERED: Nitroglycerin 50 MG/250 ML BOT 250 ML ONE (06:46)
[2021-07-15] MEDS ORDERED: Heparin 10,000 UNITS/ 10 ML VIAL ONE (06:46)
[2021-07-15] MEDS ORDERED: Bivalirudin 250 MG VIAL ONE (06:47)
[2021-07-15] MEDS ORDERED: Adenosine 6 MG/2 ML VIAL ONE (06:47)
[2021-07-15] MEDS ORDERED: Verapamil 5 MG/2 ML VIAL ONE (06:48)
[2021-07-15] MEDS: Potassium Chloride 20 MEQ in Premix Bag 1 BAG IVPB SCH ×2 (06:48→17:25)
[2021-07-15] MEDS: Budesonide 0.5 MG/2 ML NEB NEB SCH ×2 (06:52→19:00)
[2021-07-15] MEDS ORDERED: Fentanyl 100 MCG/2 ML VIAL ONE ×2 (08:07→10:31)
[2021-07-15] MEDS ORDERED: Midazolam HCl 2 mg/2 ml Vial ONE (08:08)
[2021-07-15] MEDS ORDERED: TICAGRELOR 90 MG TABLET ONE (08:34)
[2021-07-15] MEDS ORDERED: Lidocaine 1% (PF) 30 ML VIAL ONE (08:39)
[2021-07-15] MEDS ORDERED: HumaLOG 300 UNITS/3 ML VIAL SC PRN (12:00)
[2021-07-15] MEDS: Furosemide 40 MG TAB PO SCH ×2 (13:21→16:12)
[2021-07-15] MEDS: HYDROcodone/Acetaminophen 5/325 mg Tablet PO PRN (13:30)
[2021-07-15] MEDS: cefTRIAXone\\ROCEPHIN 2 GM in Sodium Chloride 0.9% 100 ML IVPB SCH ×2 (13:34→21:58)
[2021-07-15] MEDS ORDERED: Potassium Chloride 20 MEQ in Premix Bag 1 BAG IVPB SCH (16:00)
[2021-07-15] MEDS: Atorvastatin Calcium 40 MG TAB PO SCH (21:52)
[2021-07-16] MEDS: Ampicillin 2 GM in Sodium Chloride 0.9% 100 ML IVPB SCH ×4 (01:45→16:52)
[2021-07-16] MEDS: Acetaminophen 325 MG TAB PO PRN ×2 (02:20→14:55)
[2021-07-16 05:32] LABS: ALT (SGPT) 22 U/L (8-55); AST (SGOT) 21 U/L (5-34); Albumin 3.1 g/dL (3.4-4.8); Alkaline Phosphatase 78 U/L (40-110); Anion Gap 13 mmol/L (10-20); BUN (Urea Nitrogen) 18 mg/dL (8.4-25.7); Bilirubin, Total 0.7 mg/dL (0.2-1.2); Calc. Creatinine Clearance 59 mL/min (70-130); Calcium 8.4 mg/dL (7.8-10.44); Carbon Dioxide 32 mmol/L (23-31); Chloride 97 mmol/L (98-107); Globulin 2.6 g/dL (2.4-3.5); Glucose 107 mg/dL (83-110); Magnesium 2.1 mg/dL (1.6-2.6); Phosphorus 3.8 mg/dL (2.3-4.7); Potassium 3.9 mmol/L (3.5-5.1); Protein, Total 5.7 g/dL (5.8-8.1); Sodium 138 mmol/L (136-145)
[2021-07-16 05:42] LABS: #Basophils 0.1 10x3/uL (0.0-0.2); #Eosinphils 0.5 10x3/uL (0.0-0.5); #Monocytes 0.9 10x3/uL (0.0-1.1); #Neutrophils 5.5 10x3/uL (1.5-8.4); %Basophils 1.2 % (0.0-2.0); %Eosinophils 6.1 % (0.0-6.0); %Lymphocytes 11.9 % (18.0-47.0); %Monocytes 11.6 % (0.0-10.0); %Neutrophils 68.1 % (40.0-75.0); Hemoglobin 8.3 g/dL (13.5-17.5); Mean Corpuscular HGB CONC 31.1 g/dL (32.0-36.0); Mean Corpuscular Hemoglobin 27.9 pg (27.0-33.0); Mean Corpuscular Volume 89.9 fl (81.2-95.1); Mean Platelet Volume 9.6 fl (7.4-10.4); Platelet Count 273 10x3/uL (150-450); RBC Distribution Width 16.4 % (11.5-14.5); Red Blood Cell (RBC) Count 2.97 10x6/uL (4.32-5.72)
[2021-07-16] MEDS: Budesonide 0.5 MG/2 ML NEB NEB SCH (06:39)
[2021-07-16] MEDS: cefTRIAXone\\ROCEPHIN 2 GM in Sodium Chloride 0.9% 100 ML IVPB SCH (08:40)
[2021-07-16] MEDS: Aspirin 81 mg Enteric Coated Tablet PO SCH (08:41)
[2021-07-16] MEDS: Amiodarone 200 MG TAB PO SCH (08:41)
[2021-07-16] MEDS: Furosemide 40 MG TAB PO SCH ×2 (08:41→14:55)
[2021-07-16] MEDS: Cholecalciferol 1,000 UNITS (25 MCG) TAB PO SCH (08:42)
[2021-07-16] MEDS: Citalopram 20 MG TAB PO SCH (08:42)
[2021-07-16] MEDS: busPIRone HCl 5 MG TAB PO SCH (08:42)
[2021-07-16] MEDS: Ferrous Gluconate 324 MG TAB PO SCH (08:43)
[2021-07-16] MEDS ORDERED: Clopidogrel Bisulfate 75 MG TAB PO SCH (09:00)
[2021-07-16] MEDS ORDERED: Amlodipine 5 MG TAB PO SCH (11:15)
[2021-07-16] MEDS ORDERED: Ampicillin 2 GM in Sodium Chloride 0.9% 100 ML IVPB SCH (12:00)
[2021-07-16 13:54] VITALS: BP 121/59; TEMP 96.1
[2021-07-17] MEDS ORDERED: Amiodarone 200 MG TAB PO SCH (09:00)
[2021-07-17] MEDS ORDERED: Amlodipine 5 MG TAB PO SCH (09:00)
== END 2021-07-16 17:30 | DRG 248 ==
LOC: CSHIMCU 03:09 → CSHTELE 07-08 16:35
PROVIDERS: ADMIT Student in an Organized Health Care Education/Training Program; ATTEND Family Medicine
PROC: 5A09357 Assistance with Respiratory Ventilation, Less than 24 Consecutive Hours, Continuous Positive Airway Pressure (ICD-10-PCS; 2021-06-30)
PROC: 0T9B70Z Drainage of Bladder with Drainage Device, Via Natural or Artificial Opening (ICD-10-PCS; 2021-07-01)
PROC: 5A09457 Assistance with Respiratory Ventilation, 24-96 Consecutive Hours, Continuous Positive Airway Pressure (ICD-10-PCS; 2021-07-02)
PROC: 4A023N7 Measurement of Cardiac Sampling and Pressure, Left Heart, Percutaneous Approach (ICD-10-PCS; principal; 2021-07-03)
PROC: B2111ZZ Fluoroscopy of Multiple Coronary Arteries using Low Osmolar Contrast (ICD-10-PCS; 2021-07-03)
PROC: B2151ZZ Fluoroscopy of Left Heart using Low Osmolar Contrast (ICD-10-PCS; 2021-07-03)
PROC: 02703DZ Dilation of Coronary Artery, One Artery with Intraluminal Device, Percutaneous Approach (ICD-10-PCS; 2021-07-15)
DX: I13.0 Hypertensive heart and chronic kidney disease with heart failure and stage 1 through stage 4 chronic kidney disease, or unspecified chronic kidney disease (principal); I50.33 Acute on chronic diastolic (congestive) heart failure; J96.01 Acute respiratory failure with hypoxia; I21.A1 Myocardial infarction type 2; R78.81 Bacteremia; N17.9 Acute kidney failure, unspecified; I35.0 Nonrheumatic aortic (valve) stenosis; E11.51 Type 2 diabetes mellitus with diabetic peripheral angiopathy without gangrene; G47.33 Obstructive sleep apnea (adult) (pediatric); I25.10 Atherosclerotic heart disease of native coronary artery without angina pectoris; E11.65 Type 2 diabetes mellitus with hyperglycemia; E78.2 Mixed hyperlipidemia; D50.9 Iron deficiency anemia, unspecified; I48.0 Paroxysmal atrial fibrillation; B95.2 Enterococcus as the cause of diseases classified elsewhere; E11.22 Type 2 diabetes mellitus with diabetic chronic kidney disease; N18.31 Chronic kidney disease, stage 3a; D63.1 Anemia in chronic kidney disease; I65.21 Occlusion and stenosis of right carotid artery; F41.9 Anxiety disorder, unspecified; Z20.822 Contact with and (suspected) exposure to COVID-19; Z79.82 Long term (current) use of aspirin; Z79.899 Other long term (current) drug therapy; Z87.891 Personal history of nicotine dependence; Z90.49 Acquired absence of other specified parts of digestive tract; I25.2 Old myocardial infarction
CPT/HCPCS: 36415; 36416; 36600; 71045; 76770; 80048; 80053; 81001; 82553; 82805; 83735; 83880; 84100; 84145; 84443; 84484; 85014; 85018; 85025; 85049; 87040; 87449; 87899; 92928; 92978; 93005; 93010; 93306; 93454; 93458; 93970; 94640; 94660; 94760; 97139; 99152; 99153; C1753; C1760; C1876; C1887; J0153; J0282; J0290; J0461; J0583; J0696; J1644; J1650; J1815; J1940; J2001; J2060; J2250; J2270; J2405; J3010; J3475; J3480; J3490; J7070; J7620; J7626; U0003; U0005